=== PATIENT | female | born 1990 | race Caucasian/White ===

== ENCOUNTER → 2016-12-09 | Outpatient (CLI) | payer OTHER ==
[~2016-12-09] MED LIST: ATROPINE SULF 1MG/10ML SYRINGE (J0461) As Ordered ONE; BUPIVACAINE HCL 0.25% 10 ML VIAL As Ordered ONE; BUPIVACAINE HCL 0.25% 30 ML VIAL As Ordered ONE; BUTA1CAP PO; CYMB60CA3 PO; GABA300C3 PO; MECL-68 PO; MELO7.5T6 PO; REQU0.5T PO; SOMA350T PO; TRI-TAB16 PO; TRIAMCINOLONE ACETONIDE SUSP 40 MG/ML VIAL (J3301) As Ordered ONE; VITA500T3 PO; ZOFR8TAB PO
--- NOTE | 2016-12-12 01:26 | ECWPNPC ---
PATIENT NAME: DONNA MALDONADO : 1990 GENDER: FEMALE VISIT DATE: 12/09/2016 DISCHARGE DATE: 12/09/16 1300 VISIT LOCKED DATE TIME: PHYSICIAN: JAYMIE WHITE RESOURCE: JAYMIE WHITE REASON FOR APPOINTMENT 1. CHRONIC BILATERAL LOW BACK PAIN HISTORY OF PRESENT ILLNESS HISTORY OF PRESENT ILLNESS: PAIN THE PATIENT DESCRIBES THE PAIN... FALL RISK SCREENING: SCREENING :NO FALLS IN THE PAST YEAR CURRENT MEDICATIONS TAKING [id number] 50-300-40 MG CAPSULE 2 ORALLY DAILY NEEDED, NOTES: 12-07-16 TAKING ZOFRAN 8 MG TABLET 1 TABLET ORALLY TID NEEDED, NOTES: NONE TAKING REQUIP 0.5 MG TABLET ORALLY ONE AT SUPPER/ONE AT BEDTIME, NOTES: 12-08-162099 TAKING MICROGESTIN 1/20 1-20 MG-MCG TABLET 1 TABLET ORALLY DAILY FOR THREE WEEKS, 1 WEEK OFF TAKING METOPROLOL SUCCINATE 50 MG TABLET EXTENDED RELEASE ORALLY 25 MG TWICE DAILY, NOTES: 12-09-16 0800 TAKING GABAPENTIN 400 MG CAPSULE 1 CAPSULE ORALLY THREE TIMES A DAY, NOTES: 12-09-16 08 TAKING TRAMADOL HCL 50 MG TABLET 1 ORALLY Q4-6H MDD4, NOTES: 12-09-16 0800 TAKING MELOXICAM 15 MG TABLET 1 TABLET ORALLY ONCE A DAY, NOTES: 12-09-16 08 TAKING SOMA 350 MG TABLET 1 TABLET NEEDED ORALLY BID PRN, NOTES: 12-08-16 2030 TAKING ACETAMINOPHEN 500 MG CAPSULE 2 CAPSULES NEEDED ORALLY EVERY 6 HRS, NOTES: NONE TAKING HYDROXYCHLOROQUINE SULFATE 200 MG TABLET 1 TABLET WITH FOOD OR MILK ORALLY ONCE A DAY, NOTES: HASNT STARTED IT YET TAKING PREDNISOLONE 5 MG TABLET ORALLY DAILY, NOTES: HASNT STARTED IT YET. NOT-TAKING TRI-LINYAH 0.18/0.215/0.25 MG-35 MCG TABLET 1 TABLET ORALLY ONCE A DAY NOT-TAKING CYANOCOBALAMIN 500 MCG TABLET 1 TABLET ORALLY ONCE A DAY MEDICATION LIST REVIEWED AND RECONCILED WITH THE PATIENT PAST MEDICAL HISTORY MIGRAINES FIBROMYALGIA RIGHT KNEE CARTILAGE DEGENERATION SCOLIOSIS HERNIATED DISCS PSVT ALLERGIES FLEXERIL: MOOD CHANGES: SIDE EFFECTS LYRICA: INCREASES MIGRAINES: SIDE EFFECTS SOCIAL HISTORY GENERAL: TOBACCO USE ARE YOU A:NONSMOKER LEARNING BARRIERS / SPECIAL NEEDS ORIENTED TO PLAN OF CARE: PATIENT, PAIN MANAGEMENT PATIENT, ORIENTED TO PLAN OF CARE: PATIENT, PAIN MANAGEMENT PATIENT. NEW PATIENT PAIN DIARY TODAY'S VISITNOTES FROM 0-10, WHAT LEVEL IS YOUR PAIN TODAY?0 PAIN CLINIC PFS, CLERGY, PUBLIC HEALTH REFERRALS PFS REFERRAL NEEDED?NO CLERGY REFERRAL NEEDED?NO PUBLIC HEALTH REFERRAL NEEDED?NO WAS THE PROVIDER NOTIFIED OF ANY PERTINENT INFO?NO PFS REFERRAL NEEDED?NO CLERGY REFERRAL NEEDED?NO PUBLIC HEALTH REFERRAL NEEDED?NO WAS THE PROVIDER NOTIFIED OF ANY PERTINENT INFO?NO REVIEW OF SYSTEMS CONSTITUTIONAL: ANY CHANGE IN YOUR MEDICAL CONDITION? YES, NO DIAGNOSIS- CONNECTIVE TISSUE DISEASE, UNDIFFERENTIATED DOUGLAS POSITIVE . CHILLS NO . FEVER NO . INFECTION: DO YOU HAVE NEW INFECTIONS? NO . DO YOU HAVE HISTORY OF MRSA? NO . MUSCULOSKELETAL: ANY NEW PATTERNS OF PAIN OR NUMBNESS? NO . GASTROENTEROLOGY: ANY NEW CHANGE IN BOWEL CONTROL? NO . GENITOURINARY: ANY NEW CHANGE IN BLADDER CONTROL? NO . IS THERE A CHANCE YOU COULD BE ? NO . HEMATOLOGY/LYMPH: DO YOU TAKE ANY BLOOD THINNERS? (FOR EXAMPLE- COUMADIN, PLAVIX, AGGRENOX, PLATEL, PRADAXA, OR XARELTO) NO . WHEN WAS YOUR LAST DOSE? DATE: TIME: . NEUROLOGY: HAVE YOU FALLEN IN THE PAST 6 MONTHS? YES . ANY NEW EXTREMITY NUMBNESS OR WEAKNESS? NO . CARDIOLOGY: DO YOU HAVE A PACEMAKER OR DEFIBRILLATOR? NO . RESPIRATORY: HAVE YOU BEEN SICK IN THE PAST WEEK? NO . FEVER NO . FLU LIKE SYMPTOMS? NO . COUGH NO . INTEGUMENTARY: DO YOU HAVE ANY RASHES OR OPEN SORES? NO . ALLERGIC/IMMUNO: ARE YOU ALLERGIC TO SHELLFISH OR IV DYE? NO . ANY NEW ALLERGIES? NO . PSYCHIATRIC: DO YOU HAVE THOUGHTS OF HURTING YOURSELF OR SOMEONE ELSE? NO . ARE YOU ABUSED, NEGLECTED, OR IN AN UNSAFE ENVIRONMENT? NO . ENDOCRINOLOGY: ARE YOU DIABETIC? NO . OTHER: DO YOU NEED ANY PRESCRIPTIONS? NO . IF YES, PLEASE LIST: ____ . ANY NEW PROBLEMS WITH YOUR MEDICATIONS? NO . WHEN DID YOU LAST EAT? 12-08-16 2030 . WHEN DID YOU LAST DRINK? 12-09-16 0800 . WHAT DID YOU LAST DRINK? GINGERALE . NAME OF PERSON DRIVING YOU HOME? KAMLA . DO YOU HAVE ANY OTHER QUESTIONS OR CONCERNS NO . REVIEWED BY: PROVIDER: . VITAL SIGNS WT 92 LBS, HT 61 IN, BMI 17.38 INDEX, BP 105/69 MM HG, HR 67 /MIN, RR 16 /MIN, TEMP 96.0 F, OXYGEN SAT % 97%, NA INITIALS SC 10:57, REVIEWED BY: CM. ASSESSMENTS MYALGIA - M79.1 (PRIMARY) PROCEDURES PN TRIGGER POINT INJECTION NO STEROIDS PRE PROCEDURE DIAGNOSIS 1. MYALGIA 2. PAIN AT BILATERAL SHOULDER AREA AND LEFT LOWER BACK AREA POST PROCEDURE DIAGNOSIS 1. MYALGIA 2. PAIN AT BILATERAL SHOULDER AREA AND LEFT LOWER BACK AREA PROCEDURE TRIGGER POINT INJECTION AT BILATERAL SHOULDER AREA AND LEFT LOWER BACK AREA SURGEON DR. 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 I EVALUATED THE PATIENT AND REVIEWED THE CHART. THERE IS EVIDENCE OF BANDS OF TISSUE WITH RESTRICTION OF MOVEMENT AND PRESENCE OF TRIGGER POINT AT THE AFFECTED AREA. I WENT OVER THE RISKS, ALTERNATIVES, AND BENEFITS ASSOCIATED WITH THIS PROCEDURE. THE PATIENT WOULD LIKE TO PROCEED AND GAVE CONSENT TO PERFORM THE PROCEDURE. THE PATIENT DENIES UNEXPLAINABLE WEIGHT LOSS, FEVER, CHILLS, OR NEW CHANGES IN URINARY OR BOWEL CONTROL DESCRIPTION OF PROCEDURE THE PATIENT WAS BROUGHT TO THE PROCEDURE ROOM AND PLACED IN THE SITTING PRONE POSITION. THE AREA WAS CLEANED WITH ALCOHOL. THE PROCEDURE WAS DONE USING ASEPTIC STERILE TECHNIQUES. I CHECKED LATERALITY AND THE LEVEL WHERE THE PROCEDURE WAS GOING TO BE PERFORMED WITH THE PATIENT AND THE SUPPORTING STAFF AT THE MOMENT OF THE TIME OUT IN THE PROCEDURE ROOM. USING A 25-GAUGE NEEDLE, TRIGGER POINTS WERE INJECTED AT THE LEFT AND RIGHT SHOULDER AREA AND LEFT LOWER BACK AREA WITH A TOTAL OF 40 ML OF BUPIVACAINE 0.25%. AGREED WITH THE PATIENT THE PROCEDURE WAS DONE WITHOUT STEROIDS. THERE WAS NO EVIDENCE OF BLOOD, PARESTHESIA OR CEREBROSPINAL FLUID DURING THE PROCEDURE. THE PATIENT WAS SENT TO THE RECOVERY ROOM. THE PATIENT WAS MOVING THE EXTREMITIES AND DOING WELL. THERE WAS NO COMPLICATION DURING THE PROCEDURE POST PROCEDURE NOTE THE PATIENT WILL BE SEEN IN A FOLLOW UP IN THE NEXT FEW WEEKS. INSTRUCTIONS WERE GIVEN, QUESTIONS WERE ANSWERED, AND THE PATIENT EXPRESSED UNDERSTANDING AND AGREED WITH THE PLAN. I, JOO MAURICIO, DOCUMENTED THE ABOVE INFORMATION ACTING A SCRIBE FOR DR. WHITE. I HAVE REVIEWED THE ABOVE DOCUMENT, WRITTEN BY JOO ALBERTS AND I VERIFY THAT IT IS ACCURATE PROCEDURE CODES 65202 INJECT TRIGGER POINTS, =/> 3 FOLLOW UP 3 WEEKS ELECTRONICALLY SIGNED BY JAYMIE WHITE MD ON 12/11/2016 AT 06:18 PM EST DISCLAIMER : THIS IS A VISIT SUMMARY EXTRACTED FROM THE [employer] CHART. IT IS NOT A COPY OF THE [employer] PROGRESS NOTE. BRANDON
== END ==
LOC: M PAIN 10:40
PROVIDERS: ATTEND Anesthesiology
DX: G89.29 Other chronic pain (principal); M79.1 Myalgia; M54.5 Low back pain; M25.511 Pain in right shoulder; M25.512 Pain in left shoulder; Z79.891 Long term (current) use of opiate analgesic; Z79.899 Other long term (current) drug therapy; M41.9 Scoliosis, unspecified; M51.9 Unspecified thoracic, thoracolumbar and lumbosacral intervertebral disc disorder; I47.1 Supraventricular tachycardia
CPT/HCPCS: 20553; J3301

== ENCOUNTER → 2016-12-17 | Outpatient (REF) ==
[~2016-12-17] MED LIST changes: -ATROPINE SULF 1MG/10ML SYRINGE (J0461) As Ordered ONE; -BUPIVACAINE HCL 0.25% 10 ML VIAL As Ordered ONE; -BUPIVACAINE HCL 0.25% 30 ML VIAL As Ordered ONE; -TRIAMCINOLONE ACETONIDE SUSP 40 MG/ML VIAL (J3301) As Ordered ONE
== END ==
LOC: M LAB REF 12:58
PROVIDERS: ATTEND Family Medicine
DX: Z01.89 Encounter for other specified special examinations (principal)

== ENCOUNTER → 2017-01-06 | Outpatient (CLI) | payer OTHER ==
--- NOTE | 2017-01-07 00:05 | ECWPNPC ---
PATIENT NAME: DONNA MALDONADO : 1990 GENDER: FEMALE VISIT DATE: 01/06/2017 DISCHARGE DATE: 01/06/17 1137 VISIT LOCKED DATE TIME: PHYSICIAN: MERON RAMOS RESOURCE: MERON RAMOS REASON FOR APPOINTMENT 1. POST TPI HISTORY OF PRESENT ILLNESS HISTORY OF PRESENT ILLNESS: HERE FOR POST PROCEDURE F/U.HAD TPI 12-09-16.REPORTS IMPROVEMENT IN PAIN.THESE WERE OVER LEFT UPPER AND LOWER BACK.RECENT DIAGNOSIS OF CONNECTIVE TISSUE DISEASE/PRE LUPUS BY RHEUMATOLOGY -DR. [id number]-[id number].STARTED ON PREDNISONE 20MG DAILY AND PLAQUENIL 200MG DAILY.HAS NOT NEEDED SOMA SINCE BEING ON THESE MEDICATIONS.HAS DEVELOPED CIRCULAR PINK MACULAR RASH ON BACK.STARTED NOTICING THIS MAY 2016.THESES ARE TENDER TO TOUCH.DR. BOYER REFFERED TO DERMATOLOGY.RATING PAIN VAS 7/10. FALL RISK SCREENING: SCREENING :NO FALLS IN THE PAST YEAR CURRENT MEDICATIONS TAKING [id number] 50-300-40 MG CAPSULE 2 ORALLY DAILY NEEDED TAKING ZOFRAN 8 MG TABLET 1 TABLET ORALLY TID NEEDED TAKING REQUIP 0.5 MG TABLET ORALLY ONE AT SUPPER/ONE AT BEDTIME TAKING MICROGESTIN 12/18 1-20 MG-MCG TABLET 1 TABLET ORALLY DAILY FOR THREE WEEKS, 1 WEEK OFF TAKING METOPROLOL SUCCINATE 50 MG TABLET EXTENDED RELEASE ORALLY 25 MG TWICE DAILY TAKING GABAPENTIN 400 MG CAPSULE 1 CAPSULE ORALLY THREE TIMES A DAY TAKING TRAMADOL HCL 50 MG TABLET 1 ORALLY Q4-6H MDD4 TAKING MELOXICAM 15 MG TABLET 1 TABLET ORALLY ONCE A DAY, NOTES: 12-09-16 0800 TAKING SOMA 350 MG TABLET 1 TABLET NEEDED ORALLY BID PRN, NOTES: 12-08-16 2030 TAKING ACETAMINOPHEN 500 MG CAPSULE 2 CAPSULES NEEDED ORALLY EVERY 6 HRS, NOTES: NONE TAKING HYDROXYCHLOROQUINE SULFATE 200 MG TABLET 1 TABLET WITH FOOD OR MILK ORALLY ONCE A DAY TAKING PREDNISOLONE 5 MG TABLET ORALLY DAILY, NOTES: -17 NOT-TAKING TRI-LINYAH 0.18/0.215/0.25 MG-35 MCG TABLET 1 TABLET ORALLY ONCE A DAY NOT-TAKING CYANOCOBALAMIN 500 MCG TABLET 1 TABLET ORALLY ONCE A DAY MEDICATION LIST REVIEWED AND RECONCILED WITH THE PATIENT PAST MEDICAL HISTORY MIGRAINES FIBROMYALGIA RIGHT KNEE CARTILAGE DEGENERATION SCOLIOSIS HERNIATED DISCS PSVT CONNECTIVE TISSUE DISEASE ALLERGIES FLEXERIL: MOOD CHANGES: SIDE EFFECTS LYRICA: INCREASES MIGRAINES: SIDE EFFECTS SOCIAL HISTORY GENERAL: TOBACCO USE ARE YOU A:NONSMOKER LEARNING BARRIERS / SPECIAL NEEDS ORIENTED TO PLAN OF CARE: PATIENT, PAIN MANAGEMENT PATIENT, ORIENTED TO PLAN OF CARE: PATIENT, PAIN MANAGEMENT PATIENT. NEW PATIENT PAIN DIARY TODAY'S VISITNOTES FROM 0-10, WHAT LEVEL IS YOUR PAIN TODAY?0 PAIN CLINIC PFS, CLERGY, PUBLIC HEALTH REFERRALS PFS REFERRAL NEEDED?NO CLERGY REFERRAL NEEDED?NO PUBLIC HEALTH REFERRAL NEEDED?NO WAS THE PROVIDER NOTIFIED OF ANY PERTINENT INFO?NO PFS REFERRAL NEEDED?NO CLERGY REFERRAL NEEDED?NO PUBLIC HEALTH REFERRAL NEEDED?NO WAS THE PROVIDER NOTIFIED OF ANY PERTINENT INFO?NO REVIEW OF SYSTEMS CONSTITUTIONAL: ANY CHANGE IN YOUR MEDICAL CONDITION? NO . CHILLS NO . FEVER NO . INFECTION: DO YOU HAVE NEW INFECTIONS? NO . DO YOU HAVE HISTORY OF MRSA? NO . MUSCULOSKELETAL: ANY NEW PATTERNS OF PAIN OR NUMBNESS? NO . GASTROENTEROLOGY: ANY NEW CHANGE IN BOWEL CONTROL? NO . GENITOURINARY: ANY NEW CHANGE IN BLADDER CONTROL? NO . IS THERE A CHANCE YOU COULD BE ? NO . HEMATOLOGY/LYMPH: DO YOU TAKE ANY BLOOD THINNERS? (FOR EXAMPLE- COUMADIN, PLAVIX, AGGRENOX, PLATEL, PRADAXA, OR XARELTO) NO . WHEN WAS YOUR LAST DOSE? DATE: TIME: . NEUROLOGY: HAVE YOU FALLEN IN THE PAST 6 MONTHS? NO . ANY NEW EXTREMITY NUMBNESS OR WEAKNESS? NO . CARDIOLOGY: DO YOU HAVE A PACEMAKER OR DEFIBRILLATOR? NO . RESPIRATORY: HAVE YOU BEEN SICK IN THE PAST WEEK? NO . FEVER NO . FLU LIKE SYMPTOMS? NO . COUGH NO . INTEGUMENTARY: DO YOU HAVE ANY RASHES OR OPEN SORES? NO . ALLERGIC/IMMUNO: ARE YOU ALLERGIC TO SHELLFISH OR IV DYE? NO . ANY NEW ALLERGIES? NO . PSYCHIATRIC: DO YOU HAVE THOUGHTS OF HURTING YOURSELF OR SOMEONE ELSE? NO . ARE YOU ABUSED, NEGLECTED, OR IN AN UNSAFE ENVIRONMENT? NO . ENDOCRINOLOGY: ARE YOU DIABETIC? NO . OTHER: DO YOU NEED ANY PRESCRIPTIONS? NO . IF YES, PLEASE LIST: ____ . ANY NEW PROBLEMS WITH YOUR MEDICATIONS? NO . WHEN DID YOU LAST EAT? ____ . WHEN DID YOU LAST DRINK? ____ . WHAT DID YOU LAST DRINK? ____ . NAME OF PERSON DRIVING YOU HOME? ____ . DO YOU HAVE ANY OTHER QUESTIONS OR CONCERNS NO . REVIEWED BY: PROVIDER: MERON MOREIRA . VITAL SIGNS WT 92 LBS, HT 61 IN, BMI 17.38 INDEX, BP 114/65 MM HG, HR 68 /MIN, RR 16 /MIN, TEMP 96.0 F, OXYGEN SAT % 100, NA INITIALS TL 1054, REVIEWED BY: KG. EXAMINATION GENERAL EXAMINATION: LUNGS:LUNG SOUNDS ARE CLEAR. HEART:HEART RATE REGULAR. MUSCULOSKELETAL:*TRIGGER POINTS ELICITED WITH PALPATION OVER CERVICAL SPINOUS PROCESSES AND ACROSS THE TRAPEZIUS MUSCLES BILATERALLY. RESTRICTION OF ROM IS NOTED. . 1INCH PINK PAPULAR LESIONS ON BACK X4-5 SPOTS. 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 CHARGE FOLLOW UP 2 MONTHS ELECTRONICALLY SIGNED BY HARISH COOK ON 01/06/2017 AT 01:52 PM EST DISCLAIMER : THIS IS A VISIT SUMMARY EXTRACTED FROM THE [employer] CHART. IT IS NOT A COPY OF THE [employer] PROGRESS NOTE. MTDD
== END ==
LOC: M PAIN 10:40
PROVIDERS: ATTEND Nurse Practitioner Family
DX: Z09 Encounter for follow-up examination after completed treatment for conditions other than malignant neoplasm (principal); G89.29 Other chronic pain; M35.9 Systemic involvement of connective tissue, unspecified; M79.7 Fibromyalgia; G43.909 Migraine, unspecified, not intractable, without status migrainosus; M17.11 Unilateral primary osteoarthritis, right knee; M41.9 Scoliosis, unspecified; I47.1 Supraventricular tachycardia; Z79.1 Long term (current) use of non-steroidal anti-inflammatories (NSAID); Z79.52 Long term (current) use of systemic steroids; Z79.891 Long term (current) use of opiate analgesic; Z79.899 Other long term (current) drug therapy

== ENCOUNTER → 2017-03-08 | Outpatient (CLI) | payer OTHER ==
[~2017-03-08] MED LIST changes: +GABA-282 PO; -GABA300C3 PO
--- NOTE | 2017-03-18 00:45 | ECWPNPC ---
PATIENT NAME: DONNA MALDONADO : 1990 GENDER: FEMALE VISIT DATE: 03/08/2017 DISCHARGE DATE: 03/08/17 1155 VISIT LOCKED DATE TIME: PHYSICIAN: MERON RAMOS RESOURCE: MERON RAMOS REASON FOR APPOINTMENT 1. CHRONIC BILATERAL LOW BACK PAIN WITH BILATERAL SCIATICA HISTORY OF PRESENT ILLNESS HISTORY OF PRESENT ILLNESS: HERE FOR F/U AND MANAGEMENT OF LBP AND NECK PAIN.PAIN HAS INCREASED LATELY.RATING PAIN VAS 8/10.USES TRAMADOL 50MG PRN WITH SOME IMPROVEMENT.FOLLOWS WITH DRAKE LIM FOR HEADACHES.SHE HAS STARTED HER ON ROBAXIN.CURRENTLY WITH CIRCULAR LESIONS ON BACK THAT STILL HASNT BEEN DIAGNOSED.WILL BE SEEING DERMATOLOGY [place]DR. BOYER HAS SENT HER THERE. PAIN THE PATIENT DESCRIBES THE PAIN... FALL RISK SCREENING: SCREENING :NO FALLS IN THE PAST YEAR CURRENT MEDICATIONS TAKING [id number] 50-300-40 MG CAPSULE 2 ORALLY DAILY NEEDED TAKING ZOFRAN 8 MG TABLET 1 TABLET ORALLY TID NEEDED TAKING REQUIP 0.5 MG TABLET ORALLY ONE AT SUPPER/ONE AT BEDTIME TAKING MICROGESTIN 1/20 1-20 MG-MCG TABLET 1 TABLET ORALLY DAILY FOR THREE WEEKS, 1 WEEK OFF TAKING METOPROLOL SUCCINATE 50 MG TABLET EXTENDED RELEASE ORALLY 25 MG TWICE DAILY TAKING ACETAMINOPHEN 500 MG CAPSULE 2 CAPSULES NEEDED ORALLY EVERY 6 HRS, NOTES: NONE TAKING HYDROXYCHLOROQUINE SULFATE 200 MG TABLET 1 TABLET WITH FOOD OR MILK ORALLY ONCE A DAY TAKING GABAPENTIN 400 MG CAPSULE 1 CAPSULE ORALLY THREE TIMES A DAY TAKING TRAMADOL HCL 50 MG TABLET 1 ORALLY Q4-6H MDD4 TAKING MELOXICAM 15 MG TABLET 1 TABLET ORALLY ONCE A DAY TAKING ROBAXIN 500 MG TABLET 1-2 TABS ORALLY DAILY TAKING IBUPROFEN 200 MG TABLET 1 TABLET NEEDED ORALLY EVERY 6 HRS NOT-TAKING PREDNISOLONE 5 MG TABLET ORALLY DAILY NOT-TAKING SOMA 350 MG TABLET 1 TABLET NEEDED ORALLY BID PRN NOT-TAKING GABAPENTIN 400 MG CAPSULE 1 CAPSULE ORALLY THREE TIMES A DAY NOT-TAKING MELOXICAM 15 MG TABLET 1 TABLET ORALLY ONCE A DAY NOT-TAKING METOPROLOL SUCCINATE ER 50 MG TABLET EXTENDED RELEASE 24 HOUR 1/2 TAB ORALLY TWICE DAILY NOT-TAKING TRAMADOL HCL 50 MG TABLET 1 TAB ORALLY EVERY 6 HOURS NEEDED/MMD#4 NOT-TAKING HYDROXYCHLOROQUINE SULFATE 200 MG TABLET 1 TABLET WITH FOOD OR MILK ORALLY ONCE A DAY NOT-TAKING MICROGESTIN FE 12/18 1-20 MG-MCG TABLET ORALLY NOT-TAKING TRI-LINYAH 0.18/0.215/0.25 MG-35 MCG TABLET 1 TABLET ORALLY ONCE A DAY NOT-TAKING CYANOCOBALAMIN 500 MCG TABLET 1 TABLET ORALLY ONCE A DAY MEDICATION LIST REVIEWED AND RECONCILED WITH THE PATIENT PAST MEDICAL HISTORY MIGRAINES FIBROMYALGIA RIGHT KNEE CARTILAGE DEGENERATION SCOLIOSIS HERNIATED DISCS PSVT CONNECTIVE TISSUE DISEASE ALLERGIES FLEXERIL: MOOD CHANGES: SIDE EFFECTS LYRICA: INCREASES MIGRAINES: SIDE EFFECTS SOCIAL HISTORY GENERAL: PAIN CLINIC PFS, CLERGY, PUBLIC HEALTH REFERRALS CLERGY REFERRAL NEEDED?NO WAS THE PROVIDER NOTIFIED OF ANY PERTINENT INFO?NO PFS REFERRAL NEEDED?NO PUBLIC HEALTH REFERRAL NEEDED?NO PATIENT: ____. REVIEW OF SYSTEMS CONSTITUTIONAL: ANY CHANGE IN YOUR MEDICAL CONDITION? NO . CHILLS NO . FEVER NO . INFECTION: DO YOU HAVE NEW INFECTIONS? NO . DO YOU HAVE HISTORY OF MRSA? NO . MUSCULOSKELETAL: ANY NEW PATTERNS OF PAIN OR NUMBNESS? NO . GASTROENTEROLOGY: ANY NEW CHANGE IN BOWEL CONTROL? NO . GENITOURINARY: ANY NEW CHANGE IN BLADDER CONTROL? NO . IS THERE A CHANCE YOU COULD BE ? NO . HEMATOLOGY/LYMPH: DO YOU TAKE ANY BLOOD THINNERS? (FOR EXAMPLE- COUMADIN, PLAVIX, AGGRENOX, PLATEL, PRADAXA, OR XARELTO) NO . WHEN WAS YOUR LAST DOSE? DATE: TIME: . NEUROLOGY: HAVE YOU FALLEN IN THE PAST 6 MONTHS? NO . ANY NEW EXTREMITY NUMBNESS OR WEAKNESS? NO . CARDIOLOGY: DO YOU HAVE A PACEMAKER OR DEFIBRILLATOR? NO . RESPIRATORY: HAVE YOU BEEN SICK IN THE PAST WEEK? NO . FEVER NO . FLU LIKE SYMPTOMS? NO . COUGH NO . INTEGUMENTARY: DO YOU HAVE ANY RASHES OR OPEN SORES? NO . ALLERGIC/IMMUNO: ARE YOU ALLERGIC TO SHELLFISH OR IV DYE? NO . ANY NEW ALLERGIES? NO . PSYCHIATRIC: DO YOU HAVE THOUGHTS OF HURTING YOURSELF OR SOMEONE ELSE? NO . ARE YOU ABUSED, NEGLECTED, OR IN AN UNSAFE ENVIRONMENT? NO . ENDOCRINOLOGY: ARE YOU DIABETIC? NO . OTHER: DO YOU NEED ANY PRESCRIPTIONS? YES . IF YES, PLEASE LIST: TRAMADOL . ANY NEW PROBLEMS WITH YOUR MEDICATIONS? NO . WHEN DID YOU LAST EAT? ____ . WHEN DID YOU LAST DRINK? ____ . WHAT DID YOU LAST DRINK? ____ . NAME OF PERSON DRIVING YOU HOME? ____ . DO YOU HAVE ANY OTHER QUESTIONS OR CONCERNS NO . REVIEWED BY: PROVIDER: MERON MOREIRA . VITAL SIGNS WT 98 LBS, HT 61 IN, BMI 18.51 INDEX, BP 116/66 MM HG, HR 77 /MIN, RR 18 /MIN, TEMP 98.2 F, OXYGEN SAT % 100%, NA INITIALS SJ 1100, REVIEWED BY: CS. EXAMINATION GENERAL EXAMINATION: LUNGS:LUNG SOUNDS ARE CLEAR. HEART:HEART RATE REGULAR. MUSCULOSKELETAL:*TRIGGER POINTS ELICITED WITH PALPATION OVER CERVICAL SPINOUS PROCESSES AND ACROSS THE TRAPEZIUS MUSCLES BILATERALLY. RESTRICTION OF ROM IS NOTED. . 1INCH PINK PAPULAR LESIONS ON BACK X4-5 SPOTS. 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 IT IS NOT A COPY OF THE [employer] PROGRESS NOTE. MTDD
== END ==
LOC: M PAIN 10:40
PROVIDERS: ATTEND Nurse Practitioner Family
DX: G89.29 Other chronic pain (principal); M35.9 Systemic involvement of connective tissue, unspecified; M79.7 Fibromyalgia; G43.909 Migraine, unspecified, not intractable, without status migrainosus; M17.11 Unilateral primary osteoarthritis, right knee; M41.9 Scoliosis, unspecified; I47.9 Paroxysmal tachycardia, unspecified; Z88.8 Allergy status to other drugs, medicaments and biological substances; Z79.1 Long term (current) use of non-steroidal anti-inflammatories (NSAID); Z79.891 Long term (current) use of opiate analgesic; Z79.899 Other long term (current) drug therapy

== ENCOUNTER → 2017-06-07 | Outpatient (CLI) | payer OTHER ==
[~2017-06-07] MED LIST changes: -MELO7.5T6 PO; +MELO7.5T7 PO; -REQU0.5T PO; +REQU1TAB15 PO
--- NOTE | 2017-06-08 02:44 | ECWPNPC ---
PATIENT NAME: DONNA MALDONADO : 1990 GENDER: FEMALE VISIT DATE: 06/07/2017 DISCHARGE DATE: 06/07/17 1134 VISIT LOCKED DATE TIME: PHYSICIAN: MERON RAMOS RESOURCE: MERON RAMOS REASON FOR APPOINTMENT 1. CHRONIC BILATERAL LOW BACK PAIN WITH BILATERAL SCIATICA HISTORY OF PRESENT ILLNESS HISTORY OF PRESENT ILLNESS: HERE FOR F/U AND MANAGEMENT OF LBP AND NECK PAIN.PAIN HAS BETTER LATELY.RATING PAIN VAS 7/10.FOLLOWS WITH DR. BOYER RHEUMATOLOGY FOR DOUGLAS POSITIVE CONNECTIVE TISSUE DISEASE AND WAS PLACED ON PLAQUENIL SEVERAL MONTHS AGO.DOES NOT FEEL ANY DIFFERENCE IN PAIN WITH PLAQUENIL.USES TRAMADOL 50MG PRN WITH SOME IMPROVEMENT.FOLLOWS WITH DRAKE LIM FOR HEADACHES.SHE HAS STARTED HER ON ROBAXIN.HISTORY OF CIRCULAR LESIONS ON BACK THAT STILL HASNT BEEN DIAGNOSED.WILL BE SEEING DERMATOLOGY [place].DR. BOYER HAS SENT HER THERE. PAIN THE PATIENT DESCRIBES THE PAIN... THE PATIENT DESCRIBES THE PAIN... FALL RISK SCREENING: SCREENING :NO FALLS IN THE PAST YEAR CURRENT MEDICATIONS TAKING [id number] 50-300-40 MG CAPSULE 2 ORALLY DAILY NEEDED, NOTES: 06/05/17 TAKING ZOFRAN 8 MG TABLET 1 TABLET ORALLY TID NEEDED TAKING REQUIP 0.5 MG TABLET ORALLY ONE AT SUPPER/ONE AT BEDTIME TAKING MICROGESTIN 1/20 1-20 MG-MCG TABLET 1 TABLET ORALLY DAILY FOR THREE WEEKS, 1 WEEK OFF TAKING METOPROLOL SUCCINATE 50 MG TABLET EXTENDED RELEASE ORALLY 25 MG TWICE DAILY TAKING ACETAMINOPHEN 500 MG CAPSULE 2 CAPSULES NEEDED ORALLY EVERY 6 HRS, NOTES: NONE TAKING HYDROXYCHLOROQUINE SULFATE 200 MG TABLET 1 TABLET WITH FOOD OR MILK ORALLY ONCE A DAY TAKING GABAPENTIN 400 MG CAPSULE 1 CAPSULE ORALLY THREE TIMES A DAY, NOTES: 06/05/17 TAKING MELOXICAM 15 MG TABLET 1 TABLET ORALLY ONCE A DAY TAKING ROBAXIN 500 MG TABLET 1-2 TABS ORALLY DAILY TAKING IBUPROFEN 200 MG TABLET 1 TABLET NEEDED ORALLY EVERY 6 HRS TAKING TRAMADOL HCL 50 MG TABLET 1 ORALLY Q4-6H MDD4, NOTES: 06/03/17 NOT-TAKING PREDNISOLONE 5 MG TABLET ORALLY DAILY NOT-TAKING SOMA 350 MG TABLET 1 TABLET NEEDED ORALLY BID PRN NOT-TAKING GABAPENTIN 400 MG CAPSULE 1 CAPSULE ORALLY THREE TIMES A DAY NOT-TAKING MELOXICAM 15 MG TABLET 1 TABLET ORALLY ONCE A DAY NOT-TAKING METOPROLOL SUCCINATE ER 50 MG TABLET EXTENDED RELEASE 24 HOUR 1/2 TAB ORALLY TWICE DAILY NOT-TAKING TRAMADOL HCL 50 MG TABLET 1 TAB ORALLY EVERY 6 HOURS NEEDED/MMD#4 NOT-TAKING HYDROXYCHLOROQUINE SULFATE 200 MG TABLET 1 TABLET WITH FOOD OR MILK ORALLY ONCE A DAY NOT-TAKING MICROGESTIN FE 12/18 1-20 MG-MCG TABLET ORALLY NOT-TAKING TRI-LINYAH 0.18/0.215/0.25 MG-35 MCG TABLET 1 TABLET ORALLY ONCE A DAY NOT-TAKING CYANOCOBALAMIN 500 MCG TABLET 1 TABLET ORALLY ONCE A DAY MEDICATION LIST REVIEWED AND RECONCILED WITH THE PATIENT PAST MEDICAL HISTORY MIGRAINES FIBROMYALGIA RIGHT KNEE CARTILAGE DEGENERATION SCOLIOSIS HERNIATED DISCS PSVT CONNECTIVE TISSUE DISEASE ALLERGIES FLEXERIL: MOOD CHANGES: SIDE EFFECTS LYRICA: INCREASES MIGRAINES: SIDE EFFECTS SOCIAL HISTORY GENERAL: PAIN CLINIC PFS, CLERGY, PUBLIC HEALTH REFERRALS PFS REFERRAL NEEDED?NO CLERGY REFERRAL NEEDED?NO PUBLIC HEALTH REFERRAL NEEDED?NO WAS THE PROVIDER NOTIFIED OF ANY PERTINENT INFO?NO HAS THE PATIENT BEEN EDUCATED REGARDING HIS/HER PLAN OF CARE?YES HAS THE PATIENT BEEN EDUCATED REGARDING PAIN, THE RISK FOR PAIN, THE IMPORTANCE OF EFFECTIVE PAIN MANAGEMENT, AND THE PAIN ASSESSMENT PROCESS?YES PATIENT: ____. REVIEW OF SYSTEMS REVIEWED BY: PROVIDER: MERON MOREIRA . CONSTITUTIONAL: ANY CHANGE IN YOUR MEDICAL CONDITION? NO . CHILLS NO . FEVER NO . INFECTION: DO YOU HAVE NEW INFECTIONS? NO . DO YOU HAVE HISTORY OF MRSA? NO . MUSCULOSKELETAL: ANY NEW PATTERNS OF PAIN OR NUMBNESS? NO . GASTROENTEROLOGY: ANY NEW CHANGE IN BOWEL CONTROL? NO . GENITOURINARY: ANY NEW CHANGE IN BLADDER CONTROL? NO . IS THERE A CHANCE YOU COULD BE ? NO . HEMATOLOGY/LYMPH: DO YOU TAKE ANY BLOOD THINNERS? (FOR EXAMPLE- COUMADIN, PLAVIX, AGGRENOX, PLATEL, PRADAXA, OR XARELTO) NO . WHEN WAS YOUR LAST DOSE? DATE: TIME: . NEUROLOGY: HAVE YOU FALLEN IN THE PAST 6 MONTHS? NO . ANY NEW EXTREMITY NUMBNESS OR WEAKNESS? NO . CARDIOLOGY: DO YOU HAVE A PACEMAKER OR DEFIBRILLATOR? NO . RESPIRATORY: HAVE YOU BEEN SICK IN THE PAST WEEK? NO . FEVER NO . FLU LIKE SYMPTOMS? NO . COUGH NO . INTEGUMENTARY: DO YOU HAVE ANY RASHES OR OPEN SORES? NO . ALLERGIC/IMMUNO: ARE YOU ALLERGIC TO SHELLFISH OR IV DYE? NO . ANY NEW ALLERGIES? NO . PSYCHIATRIC: DO YOU HAVE THOUGHTS OF HURTING YOURSELF OR SOMEONE ELSE? NO . ARE YOU ABUSED, NEGLECTED, OR IN AN UNSAFE ENVIRONMENT? NO . ENDOCRINOLOGY: ARE YOU DIABETIC? NO . OTHER: DO YOU NEED ANY PRESCRIPTIONS? NO . IF YES, PLEASE LIST: ____ . ANY NEW PROBLEMS WITH YOUR MEDICATIONS? NO . WHEN DID YOU LAST EAT? ____ . WHEN DID YOU LAST DRINK? ____ . WHAT DID YOU LAST DRINK? ____ . NAME OF PERSON DRIVING YOU HOME? ____ . DO YOU HAVE ANY OTHER QUESTIONS OR CONCERNS NO . VITAL SIGNS WT 99 LBS, HT 61 IN, BMI 18.70 INDEX, BP 97/63 MM HG, HR 68 /MIN, RR 16 /MIN, TEMP 98.1 F, OXYGEN SAT % 100%, NA INITIALS SC 11:04, REVIEWED BY: SENG. EXAMINATION GENERAL EXAMINATION: LUNGS:LUNG SOUNDS ARE CLEAR. HEART:HEART RATE REGULAR. MUSCULOSKELETAL:*TRIGGER POINTS ELICITED WITH PALPATION OVER CERVICAL SPINOUS PROCESSES AND ACROSS THE TRAPEZIUS MUSCLES BILATERALLY. RESTRICTION OF ROM IS NOTED. . 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 PROCEDURE CODES FA211 ESTABILISHED PATIENT [facility] CHARGE DISPOSITION & COMMUNICATION FOLLOW UP 6 WEEKS (REASON: F/U CYMBALTA) ELECTRONICALLY SIGNED BY HARISH COOK ON 06/07/2017 AT 11:51 AM EDT DISCLAIMER : THIS IS A VISIT SUMMARY EXTRACTED FROM THE [employer] CHART. IT IS NOT A COPY OF THE [employer] PROGRESS NOTE. MTDD
== END ==
LOC: M PAIN 11:00
PROVIDERS: ATTEND Nurse Practitioner Family
DX: G89.29 Other chronic pain (principal); M35.9 Systemic involvement of connective tissue, unspecified; M79.1 Myalgia; G43.909 Migraine, unspecified, not intractable, without status migrainosus; M17.11 Unilateral primary osteoarthritis, right knee; Z88.8 Allergy status to other drugs, medicaments and biological substances; Z79.891 Long term (current) use of opiate analgesic; Z79.899 Other long term (current) drug therapy

== ENCOUNTER → 2017-08-04 | Outpatient (CLI) | payer OTHER ==
--- NOTE | 2017-08-13 01:02 | ECWPNPC ---
PATIENT NAME: DONNA MALDONADO : 1990 GENDER: FEMALE VISIT DATE: 08/04/2017 DISCHARGE DATE: 08/04/17 1727 VISIT LOCKED DATE TIME: PHYSICIAN: MERON RAMOS RESOURCE: MERON RAMOS REASON FOR APPOINTMENT 1. F/U CYMBALTA HISTORY OF PRESENT ILLNESS HISTORY OF PRESENT ILLNESS: HERE FOR F/U AND MANAGEMENT OF LBP AND NECK PAIN.PAIN HAS BEEN AGGREVATED IN NECK AREA LATELY.HAS RESPONDED TO TPI LATELY.RATING PAIN VAS 6/10.FOLLOWS WITH DR. BOYER RHEUMATOLOGY FOR DOUGLAS POSITIVE CONNECTIVE TISSUE DISEASE AND WAS PLACED ON PLAQUENIL SEVERAL MONTHS AGO.USES TRAMADOL 50MG PRN WITH SOME IMPROVEMENT.FOLLOWS WITH DRAKE LIM FOR HEADACHES.SHE HAS STARTED HER ON ROBAXIN DAILY A FEW MONTHS AGO AND REPORTS NO IMPROVEMENT.STATES CIRCULAR LESIONS ON BACK HAVE RESOLVED.[place]. BOYER HAS SENT HER THERE.USING GABAPENTIN 400MG TID AND MOBIC 15MG DAILY PRESCRIBED BY DRAKE LIM AT NEUROLOGY.HAD TO STOP CYMBALTA DUE TO SEVERE FATIGUE. PAIN THE PATIENT DESCRIBES THE PAIN... THE PATIENT DESCRIBES THE PAIN... THE PATIENT DESCRIBES THE PAIN... FALL RISK SCREENING: SCREENING :NO FALLS IN THE PAST YEAR CURRENT MEDICATIONS TAKING [id number] 50-300-40 MG CAPSULE 2 ORALLY DAILY NEEDED, NOTES: 06/05/17 TAKING ZOFRAN 8 MG TABLET 1 TABLET ORALLY TID NEEDED TAKING REQUIP 0.5 MG TABLET ORALLY ONE AT SUPPER/ONE AT BEDTIME TAKING MICROGESTIN 1/20 1-20 MG-MCG TABLET 1 TABLET ORALLY DAILY FOR THREE WEEKS, 1 WEEK OFF TAKING METOPROLOL SUCCINATE 50 MG TABLET EXTENDED RELEASE ORALLY 25 MG TWICE DAILY TAKING ACETAMINOPHEN 500 MG CAPSULE 2 CAPSULES NEEDED ORALLY EVERY 6 HRS, NOTES: NONE TAKING HYDROXYCHLOROQUINE SULFATE 200 MG TABLET 1 TABLET WITH FOOD OR MILK ORALLY ONCE A DAY TAKING GABAPENTIN 400 MG CAPSULE 1 CAPSULE ORALLY THREE TIMES A DAY, NOTES: 06/05/17 TAKING MELOXICAM 15 MG TABLET 1 TABLET ORALLY ONCE A DAY TAKING ROBAXIN 500 MG TABLET 1-2 TABS ORALLY DAILY TAKING IBUPROFEN 200 MG TABLET 1 TABLET NEEDED ORALLY EVERY 6 HRS TAKING TRAMADOL HCL 50 MG TABLET 1 ORALLY Q4-6H MDD4, NOTES: 7/6/17 NOT-TAKING TRAMADOL HCL 50 MG TABLET 1 TAB ORALLY EVERY 6 HOURS NEEDED/MMD#4 NOT-TAKING CYMBALTA 20 MG CAPSULE DELAYED RELEASE PARTICLES 1 CAPSULE ORALLY DAILY NOT-TAKING PREDNISOLONE 5 MG TABLET ORALLY DAILY NOT-TAKING SOMA 350 MG TABLET 1 TABLET NEEDED ORALLY BID PRN NOT-TAKING GABAPENTIN 400 MG CAPSULE 1 CAPSULE ORALLY THREE TIMES A DAY NOT-TAKING MELOXICAM 15 MG TABLET 1 TABLET ORALLY ONCE A DAY NOT-TAKING METOPROLOL SUCCINATE ER 50 MG TABLET EXTENDED RELEASE 24 HOUR /2 TAB ORALLY TWICE DAILY NOT-TAKING HYDROXYCHLOROQUINE SULFATE 200 MG TABLET 1 TABLET WITH FOOD OR MILK ORALLY ONCE A DAY NOT-TAKING MICROGESTIN FE 12/18 1-20 MG-MCG TABLET ORALLY NOT-TAKING TRI-LINYAH 0.18/0.215/0.25 MG-35 MCG TABLET 1 TABLET ORALLY ONCE A DAY NOT-TAKING CYANOCOBALAMIN 500 MCG TABLET 1 TABLET ORALLY ONCE A DAY MEDICATION LIST REVIEWED AND RECONCILED WITH THE PATIENT PAST MEDICAL HISTORY MIGRAINES FIBROMYALGIA RIGHT KNEE CARTILAGE DEGENERATION SCOLIOSIS HERNIATED DISCS PSVT CONNECTIVE TISSUE DISEASE ALLERGIES FLEXERIL: MOOD CHANGES: SIDE EFFECTS LYRICA: INCREASES MIGRAINES: SIDE EFFECTS REVIEW OF SYSTEMS REVIEWED BY: PROVIDER: MERON MOREIRA . CONSTITUTIONAL: ANY CHANGE IN YOUR MEDICAL CONDITION? NO . CHILLS NO . FEVER NO . INFECTION: DO YOU HAVE NEW INFECTIONS? NO . DO YOU HAVE HISTORY OF MRSA? NO . MUSCULOSKELETAL: ANY NEW PATTERNS OF PAIN OR NUMBNESS? YES LEFT UPPER LEG . GASTROENTEROLOGY: ANY NEW CHANGE IN BOWEL CONTROL? NO . GENITOURINARY: ANY NEW CHANGE IN BLADDER CONTROL? NO . IS THERE A CHANCE YOU COULD BE ? NO . HEMATOLOGY/LYMPH: DO YOU TAKE ANY BLOOD THINNERS? (FOR EXAMPLE- COUMADIN, PLAVIX, AGGRENOX, PLATEL, PRADAXA, OR XARELTO) NO . WHEN WAS YOUR LAST DOSE? DATE: TIME: . NEUROLOGY: HAVE YOU FALLEN IN THE PAST 6 MONTHS? NO . ANY NEW EXTREMITY NUMBNESS OR WEAKNESS? NO . CARDIOLOGY: DO YOU HAVE A PACEMAKER OR DEFIBRILLATOR? NO . RESPIRATORY: HAVE YOU BEEN SICK IN THE PAST WEEK? NO . FEVER NO . FLU LIKE SYMPTOMS? NO . COUGH NO . INTEGUMENTARY: DO YOU HAVE ANY RASHES OR OPEN SORES? NO . ALLERGIC/IMMUNO: ARE YOU ALLERGIC TO SHELLFISH OR IV DYE? NO . ANY NEW ALLERGIES? NO . PSYCHIATRIC: DO YOU HAVE THOUGHTS OF HURTING YOURSELF OR SOMEONE ELSE? NO . ARE YOU ABUSED, NEGLECTED, OR IN AN UNSAFE ENVIRONMENT? NO . ENDOCRINOLOGY: ARE YOU DIABETIC? NO . OTHER: DO YOU NEED ANY PRESCRIPTIONS? NO . IF YES, PLEASE LIST: ____ . ANY NEW PROBLEMS WITH YOUR MEDICATIONS? NO . WHEN DID YOU LAST EAT? ____ . WHEN DID YOU LAST DRINK? ____ . WHAT DID YOU LAST DRINK? ____ . NAME OF PERSON DRIVING YOU HOME? ____ . DO YOU HAVE ANY OTHER QUESTIONS OR CONCERNS NO . VITAL SIGNS WT 100 LBS, HT 61 IN, BMI 18.89 INDEX, BP 99/60 MM HG, HR 80 /MIN, RR 18 /MIN, TEMP 97.5 F, OXYGEN SAT % 98, SAFE IN ENV? (Y/N) Y, REVIEWED BY: KG. EXAMINATION GENERAL EXAMINATION: LUNGS:LUNG SOUNDS ARE CLEAR. HEART:HEART RATE REGULAR. MUSCULOSKELETAL:*TRIGGER POINTS ELICITED WITH PALPATION OVER CERVICAL SPINOUS PROCESSES AND ACROSS THE TRAPEZIUS MUSCLES BILATERALLYL>R .RESTRICTION OF ROM IS NOTED. . ASSESSMENTS CONNECTIVE TISSUE DISEASE - M35.9 (PRIMARY) MYOFASCIAL PAIN - M79.1 TREATMENT CONNECTIVE TISSUE DISEASE REFILL TRAMADOL HCL TABLET, 50 MG, 1, ORALLY, Q4-6H MDD4, 30 DAY(S), 120, REFILLS 2, NOTES: 06/03/17 NOTES: TPI NECK. PREVENTIVE MEDICINE PAIN CLINIC TEACHING: PROCEDURE TEACHING PRE-PROCEDURE TEACHING DONE AND PATIENT VERBALIZES UNDERSTANDING.. PROCEDURE CODES FA211 ESTABILISHED PATIENT [facility] CHARGE DISPOSITION & COMMUNICATION FOLLOW UP 2WK POST (REASON: TPI NECK) ELECTRONICALLY SIGNED BY HARISH COOK ON 08/12/2017 AT 06:35 PM EDT DISCLAIMER : THIS IS A VISIT SUMMARY EXTRACTED FROM THE [employer] CHART. IT IS NOT A COPY OF THE [employer] PROGRESS NOTE. BRANDON
== END ==
LOC: M PAIN 14:45
PROVIDERS: ATTEND Nurse Practitioner Family
DX: M35.9 Systemic involvement of connective tissue, unspecified (principal); M79.1 Myalgia; M54.5 Low back pain; M54.2 Cervicalgia; G43.909 Migraine, unspecified, not intractable, without status migrainosus; Z79.891 Long term (current) use of opiate analgesic; Z79.899 Other long term (current) drug therapy; Z88.8 Allergy status to other drugs, medicaments and biological substances

== ENCOUNTER → 2017-08-17 | Outpatient (CLI) | payer OTHER ==
[~2017-08-17] MED LIST changes: +BUPIVACAINE HCL 0.25% 10 ML VIAL As Ordered ONE; +BUPIVACAINE HCL 0.25% 30 ML VIAL As Ordered ONE; +TRIAMCINOLONE ACETONIDE SUSP 40 MG/ML VIAL (J3301) As Ordered ONE
--- NOTE | 2017-08-18 00:10 | ECWPNPC ---
PATIENT NAME: DONNA MALDONADO : 1990 GENDER: FEMALE VISIT DATE: 08/17/2017 DISCHARGE DATE: 08/17/17 1657 VISIT LOCKED DATE TIME: PHYSICIAN: JAYMIE WHITE RESOURCE: JAYMIE WHITE REASON FOR APPOINTMENT 1. TPI NECK HISTORY OF PRESENT ILLNESS FALL RISK SCREENING: SCREENING :NO FALLS IN THE PAST YEAR PAIN SCREENING: PATIENT HAS A COMPLAINT OF ACUTE OR CHRONIC PAIN :YES CURRENT MEDICATIONS TAKING [id number] 50-300-40 MG CAPSULE 2 ORALLY DAILY NEEDED, NOTES: 2 DAYS AGO TAKING ZOFRAN 8 MG TABLET 1 TABLET ORALLY TID NEEDED, NOTES: 08/16 2PM TAKING REQUIP 0.5 MG TABLET ORALLY ONE AT SUPPER/ONE AT BEDTIME, NOTES: 08/16 8PM TAKING MICROGESTIN 1/20 1-20 MG-MCG TABLET 1 TABLET ORALLY DAILY FOR THREE WEEKS, 1 WEEK OFF, NOTES: 08/17 8AM TAKING ACETAMINOPHEN 500 MG CAPSULE 2 CAPSULES NEEDED ORALLY EVERY 6 HRS, NOTES: 2 WEEKS TAKING HYDROXYCHLOROQUINE SULFATE 200 MG TABLET 1 TABLET WITH FOOD OR MILK ORALLY ONCE A DAY, NOTES: 08/17 8AM TAKING GABAPENTIN 400 MG CAPSULE 1 CAPSULE ORALLY THREE TIMES A DAY, NOTES: 08/16 8PM TAKING MELOXICAM 15 MG TABLET 1 TABLET ORALLY ONCE A DAY, NOTES: 08/17 8AM TAKING ROBAXIN 500 MG TABLET 1-2 TABS ORALLY DAILY, NOTES: 08/16 9PM TAKING IBUPROFEN 200 MG TABLET 1 TABLET NEEDED ORALLY EVERY 6 HRS, NOTES: 08/16 8AM TAKING TRAMADOL HCL 50 MG TABLET 1 ORALLY Q4-6H MDD4, NOTES: 08/16 8PM NOT-TAKING METOPROLOL SUCCINATE 50 MG TABLET EXTENDED RELEASE ORALLY 25 MG TWICE DAILY NOT-TAKING TRAMADOL HCL 50 MG TABLET 1 TAB ORALLY EVERY 6 HOURS NEEDED/MMD#4 NOT-TAKING CYMBALTA 20 MG CAPSULE DELAYED RELEASE PARTICLES 1 CAPSULE ORALLY DAILY NOT-TAKING PREDNISOLONE 5 MG TABLET ORALLY DAILY NOT-TAKING SOMA 350 MG TABLET 1 TABLET NEEDED ORALLY BID PRN NOT-TAKING GABAPENTIN 400 MG CAPSULE 1 CAPSULE ORALLY THREE TIMES A DAY NOT-TAKING MELOXICAM 15 MG TABLET 1 TABLET ORALLY ONCE A DAY NOT-TAKING METOPROLOL SUCCINATE ER 50 MG TABLET EXTENDED RELEASE 24 HOUR 1/2 TAB ORALLY TWICE DAILY NOT-TAKING HYDROXYCHLOROQUINE SULFATE 200 MG TABLET 1 TABLET WITH FOOD OR MILK ORALLY ONCE A DAY NOT-TAKING MICROGESTIN FE 12/18 1-20 MG-MCG TABLET ORALLY NOT-TAKING TRI-LINYAH 0.18/0.215/0.25 MG-35 MCG TABLET 1 TABLET ORALLY ONCE A DAY NOT-TAKING CYANOCOBALAMIN 500 MCG TABLET 1 TABLET ORALLY ONCE A DAY MEDICATION LIST REVIEWED AND RECONCILED WITH THE PATIENT PAST MEDICAL HISTORY MIGRAINES FIBROMYALGIA RIGHT KNEE CARTILAGE DEGENERATION SCOLIOSIS HERNIATED DISCS PSVT CONNECTIVE TISSUE DISEASE ALLERGIES FLEXERIL: MOOD CHANGES: SIDE EFFECTS LYRICA: INCREASES MIGRAINES: SIDE EFFECTS SOCIAL HISTORY GENERAL: TOBACCO USE ARE YOU A:NONSMOKER CAFFEINE CAFFEINE USE?YES HOW OFTEN AND HOW MUCH? 2-4 GLASSES PAIN CLINIC PFS, CLERGY, PUBLIC HEALTH REFERRALS PFS REFERRAL NEEDED?NO CLERGY REFERRAL NEEDED?NO PUBLIC HEALTH REFERRAL NEEDED?NO WAS THE PROVIDER NOTIFIED OF ANY PERTINENT INFO?YES HAS THE PATIENT BEEN EDUCATED REGARDING HIS/HER PLAN OF CARE?YES PLEASE DOCUMENT ANY ADDTIONAL DETAILS. TRIGGER POINT INJECTIONS UPPER BACK AND LOWER BACK HAS THE PATIENT BEEN EDUCATED REGARDING PAIN, THE RISK FOR PAIN, THE IMPORTANCE OF EFFECTIVE PAIN MANAGEMENT, AND THE PAIN ASSESSMENT PROCESS?YES REVIEWED BY: CHARIS. PATIENT: ____. REVIEW OF SYSTEMS REVIEWED BY: PROVIDER: . CONSTITUTIONAL: ANY CHANGE IN YOUR MEDICAL CONDITION? NO . CHILLS NO . FEVER NO . INFECTION: DO YOU HAVE NEW INFECTIONS? NO . DO YOU HAVE HISTORY OF MRSA? NO . MUSCULOSKELETAL: ANY NEW PATTERNS OF PAIN OR NUMBNESS? NO . SYTEMIC LUPUS NO . GASTROENTEROLOGY: ANY NEW CHANGE IN BOWEL CONTROL? NO . BARRETTS ESOPHAGUS NO . CIRRHOSIS NO . HEPATITIS NO . LIVER FAILURE NO . ACID REFLUX NO . UNEXPLAINED WEIGHT LOSS NO . GENITOURINARY: ANY NEW CHANGE IN BLADDER CONTROL? NO . IS THERE A CHANCE YOU COULD BE ? NO . HEMATOLOGY/LYMPH: DO YOU TAKE ANY BLOOD THINNERS? (FOR EXAMPLE- COUMADIN, PLAVIX, AGGRENOX, PLATEL, PRADAXA, OR XARELTO) NO . WHEN WAS YOUR LAST DOSE? DATE: TIME: . LOW PLATELET COUNT NO . SICKLE CELL DISEASE NO . VON WILLIEBRANDS NO . FACTOR V LEIDEN NO . THALLASEMIA NO . ANEMIA NO . EASY BRUISING NO . NEUROLOGY: HAVE YOU FALLEN IN THE PAST 6 MONTHS? NO . ANY NEW EXTREMITY NUMBNESS OR WEAKNESS? NO . HEAD INJURY NO . DEMENTIA NO . CEREBRAL PALSY NO . MULTIPLE SCLEROSIS NO . DIZZINESS NO . HEADACHE NO . STROKES NO . VERTIGO NO . CARDIOLOGY: DO YOU HAVE A PACEMAKER OR DEFIBRILLATOR? NO . ANGINA NO . HEART ATTACK NO . HEART SURGERY NO . CONGESTIVE HEART FAILURE/FLUID OVERLOAD NO . CHEST PAIN NO . HIGH BLOOD PRESSURE NO . IRREGULAR HEART BEAT NO . RESPIRATORY: HAVE YOU BEEN SICK IN THE PAST WEEK? NO . FEVER NO . FLU LIKE SYMPTOMS? NO . CPAP NO . BYPAP NO . ASTHMA NO . EMPHYSEMA NO . CHRONIC LUNG DISEASES NO . SHORTNESS OF BREATH ON EXERTION NO . COUGH NO . SNORING NO . INTEGUMENTARY: DO YOU HAVE ANY RASHES OR OPEN SORES? NO . ALLERGIC/IMMUNO: ARE YOU ALLERGIC TO SHELLFISH OR IV DYE? NO . ANY NEW ALLERGIES? NO . PSYCHIATRIC: DO YOU HAVE THOUGHTS OF HURTING YOURSELF OR SOMEONE ELSE? NO . ARE YOU ABUSED, NEGLECTED, OR IN AN UNSAFE ENVIRONMENT? NO . ENDOCRINOLOGY: ARE YOU DIABETIC? NO . THYROID DISORDER NO . OTHER: DO YOU NEED ANY PRESCRIPTIONS? NO . IF YES, PLEASE LIST: ____ . ANY NEW PROBLEMS WITH YOUR MEDICATIONS? NO . WHEN DID YOU LAST EAT? 8:30AM . WHEN DID YOU LAST DRINK? 9AM . WHAT DID YOU LAST DRINK? YEMI SYKES . NAME OF PERSON DRIVING YOU HOME? FEI . DO YOU HAVE ANY OTHER QUESTIONS OR CONCERNS NO . VITAL SIGNS WT 99 LBS, HT 61 IN, BMI 18.70 INDEX, BP 93/54 MM HG, HR 82 /MIN, RR 18 /MIN, TEMP 98.2 F, OXYGEN SAT % 99%, SAFE IN ENV? (Y/N) Y, NA INITIALS AW 1512, REVIEWED BY: CHARIS. ASSESSMENTS MYALGIA - M79.1 (PRIMARY) PROCEDURES PN TRIGGER POINT INJECTION WITH STEROIDS PRE PROCEDURE DIAGNOSIS 1. MYALGIA 2. PAIN AT BILATERAL SHOULDER AREA, RIGHT THORACIC AREA, AND RIGHT LOWER BACK AREA POST PROCEDURE DIAGNOSIS 1. MYALGIA 2. PAIN AT BILATERAL SHOULDER AREA, RIGHT THORACIC AREA, AND RIGHT LOWER BACK AREA PROCEDURE TRIGGER POINT INJECTION AT BILATERAL SHOULDER AREA, RIGHT THORACIC AREA, AND RIGHT LOWER BACK AREA SURGEON DR. JAYMIE WHITE MAJOR CASE DETECTIVE NONE ANESTHESIA LOCAL PRE PROCEDURE NOTE THE PATIENT HAS A HISTORY OF CHRONIC PAIN AT THE RIGHT AND LEFT SHOULDER AREA, RIGHT THORACIC AREA, AND RIGHT LOWER BACK AREA. I EVALUATE THE PATIENT AND REVIEWED THE CHART. THERE IS EVIDENCE OF BANDS OF TISSUE WITH RESTRICTION OF MOVEMENT AND PRESENCE OF TRIGGER POINT AT THE AFFECTED AREA. I WENT OVER THE RISKS, ALTERNATIVES, AND BENEFITS ASSOCIATED WITH THIS PROCEDURE. THE PATIENT WOULD LIKE TO PROCEED AND GIVE CONSENT TO PERFORMED THE PROCEDURE. THE PATIENT DENIES UNEXPLAINABLE WEIGHT LOSS, FEVER, CHILLS, OR NEW CHANGES IN URINARY OR BOWEL CONTROL DESCRIPTION OF PROCEDURE THE PATIENT WAS BROUGHT TO THE PROCEDURE ROOM AND PLACED IN THE SITTING POSITION. THE AREA WAS CLEANED WITH ALCOHOL. THE PROCEDURE WAS DONE USING ASEPTIC STERILE TECHNIQUE. I CHECKED LATERALITY AND THE LEVEL WHERE THE PROCEDURE WAS GOING TO BE PERFORMED WITH THE PATIENT AND THE SUPPORTING STAFF AT THE MOMENT OF THE TIME OUT IN THE PROCEDURE ROOM. USING A 25-GAUGE NEEDLE, TRIGGER POINTS WERE INJECTED AT THE RIGHT AND LEFT SHOULDER AREA, RIGHT THORACIC AREA, AND RIGHT LOWER BACK AREA WITH A TOTAL OF 40 ML OF BUPIVACAINE 0.25% AND KENALOG 40 MG. THERE WAS NO EVIDENCE OF BLOOD, PARESTHESIA OR CEREBROSPINAL FLUID DURING THE PROCEDURE. THE PATIENT WAS SENT TO THE RECOVERY ROOM. THE PATIENT WAS MOVING THE EXTREMITIES AND DOING WELL. THERE WAS NO COMPLICATION DURING THE PROCEDURE POST PROCEDURE NOTE THE PATIENT WILL BE SEEN IN A FOLLOW UP IN THE NEXT FEW WEEKS. INSTRUCTIONS WERE GIVEN, QUESTIONS WERE ANSWERED, AND THE PATIENT EXPRESSED UNDERSTANDING AND AGREES WITH THE PLAN. I, JOO MAURICIO, DOCUMENTED THE ABOVE INFORMATION ACTING A SCRIBE FOR DR. WHITE. I, DR. WHITE, HAVE REVIEWED THE ABOVE DOCUMENT, SCRIBED BY JOO MAURICIO, AND I VERIFY THAT IT IS ACCURATE PROCEDURE CODES 10974 INJECT TRIGGER POINTS 3/> DISPOSITION & COMMUNICATION FOLLOW UP 3 WEEKS ELECTRONICALLY SIGNED BY JAYMIE WHITE MD ON 08/17/2017 AT 09:22 PM EDT DISCLAIMER : THIS IS A VISIT SUMMARY EXTRACTED FROM THE [employer] CHART. IT IS NOT A COPY OF THE [employer] PROGRESS NOTE. BRANDON
== END ==
LOC: M PAIN 15:15
PROVIDERS: ATTEND Anesthesiology
DX: G89.29 Other chronic pain (principal); M25.511 Pain in right shoulder; M25.512 Pain in left shoulder; M54.6 Pain in thoracic spine; M54.5 Low back pain; M79.1 Myalgia; Z88.8 Allergy status to other drugs, medicaments and biological substances; Z79.1 Long term (current) use of non-steroidal anti-inflammatories (NSAID); Z79.891 Long term (current) use of opiate analgesic; Z79.899 Other long term (current) drug therapy
CPT/HCPCS: 20553; J3301

== ENCOUNTER → 2017-08-31 | Outpatient (CLI) | payer OTHER ==
[~2017-08-31] MED LIST changes: -BUPIVACAINE HCL 0.25% 10 ML VIAL As Ordered ONE; -BUPIVACAINE HCL 0.25% 30 ML VIAL As Ordered ONE; -TRIAMCINOLONE ACETONIDE SUSP 40 MG/ML VIAL (J3301) As Ordered ONE
--- NOTE | 2017-09-21 01:48 | ECWPNPC ---
PATIENT NAME: DONNA MALDONADO : 1990 GENDER: FEMALE VISIT DATE: 08/31/2017 DISCHARGE DATE: 08/31/17 1510 VISIT LOCKED DATE TIME: PHYSICIAN: MERON RAMOS RESOURCE: MERON RAMOS REASON FOR APPOINTMENT 1. POST TPI HISTORY OF PRESENT ILLNESS HISTORY OF PRESENT ILLNESS: HERE FOR POST PROCEDURE F/U AND MANAGEMENT OF CHRONIC SHOULDERS AND THORACIC SPINE PAIN.HAD TPI BILATERAL SHOULDER,RIGHT THORACIC AND LOW BACK REGION.REPORTS >50% RELIEF THAT CONTINUES TODAY.RATING PAIN VAS 6/10.PAIN IS RIGHT NECK AND RIGH SCAPULAR AREA. PAIN THE PATIENT DESCRIBES THE PAIN... FALL RISK SCREENING: SCREENING :NO FALLS IN THE PAST YEAR CURRENT MEDICATIONS TAKING PROPRANOLOL HCL 20 MG TABLET 1 TABLET ORALLY TWICE A DAY TAKING [id number] 50-300-40 MG CAPSULE 2 ORALLY DAILY NEEDED TAKING ZOFRAN 8 MG TABLET 1 TABLET ORALLY TID NEEDED TAKING REQUIP 0.5 MG TABLET ORALLY ONE AT SUPPER/ONE AT BEDTIME TAKING MICROGESTIN 1/20 1-20 MG-MCG TABLET 1 TABLET ORALLY DAILY FOR THREE WEEKS, 1 WEEK OFF TAKING ACETAMINOPHEN 500 MG CAPSULE 2 CAPSULES NEEDED ORALLY EVERY 6 HRS TAKING HYDROXYCHLOROQUINE SULFATE 200 MG TABLET 1 TABLET WITH FOOD OR MILK ORALLY ONCE A DAY TAKING GABAPENTIN 400 MG CAPSULE 1 CAPSULE ORALLY THREE TIMES A DAY TAKING MELOXICAM 15 MG TABLET 1 TABLET ORALLY ONCE A DAY TAKING ROBAXIN 500 MG TABLET 1-2 TABS ORALLY DAILY TAKING IBUPROFEN 200 MG TABLET 1 TABLET NEEDED ORALLY EVERY 6 HRS TAKING TRAMADOL HCL 50 MG TABLET 1 ORALLY Q4-6H MDD4 TAKING PREDNISOLONE 5 MG TABLET ORALLY DAILY NOT-TAKING METOPROLOL SUCCINATE 50 MG TABLET EXTENDED RELEASE ORALLY 25 MG TWICE DAILY NOT-TAKING TRAMADOL HCL 50 MG TABLET 1 TAB ORALLY EVERY 6 HOURS NEEDED/MMD#4 NOT-TAKING CYMBALTA 20 MG CAPSULE DELAYED RELEASE PARTICLES 1 CAPSULE ORALLY DAILY NOT-TAKING SOMA 350 MG TABLET 1 TABLET NEEDED ORALLY BID PRN NOT-TAKING GABAPENTIN 400 MG CAPSULE 1 CAPSULE ORALLY THREE TIMES A DAY NOT-TAKING MELOXICAM 15 MG TABLET 1 TABLET ORALLY ONCE A DAY NOT-TAKING METOPROLOL SUCCINATE ER 50 MG TABLET EXTENDED RELEASE 24 HOUR 1/2 TAB ORALLY TWICE DAILY NOT-TAKING HYDROXYCHLOROQUINE SULFATE 200 MG TABLET 1 TABLET WITH FOOD OR MILK ORALLY ONCE A DAY NOT-TAKING MICROGESTIN FE 1/20 1-20 MG-MCG TABLET ORALLY NOT-TAKING TRI-LINYAH 0.18/0.215/0.25 MG-35 MCG TABLET 1 TABLET ORALLY ONCE A DAY NOT-TAKING CYANOCOBALAMIN 500 MCG TABLET 1 TABLET ORALLY ONCE A DAY MEDICATION LIST REVIEWED AND RECONCILED WITH THE PATIENT PAST MEDICAL HISTORY MIGRAINES FIBROMYALGIA RIGHT KNEE CARTILAGE DEGENERATION SCOLIOSIS HERNIATED DISCS PSVT CONNECTIVE TISSUE DISEASE ALLERGIES FLEXERIL: MOOD CHANGES: SIDE EFFECTS LYRICA: INCREASES MIGRAINES: SIDE EFFECTS SURGICAL HISTORY TONSILECTOMY 1999 2013 SOCIAL HISTORY GENERAL: TOBACCO USE ARE YOU A:NONSMOKER CAFFEINE CAFFEINE USE?YES HOW OFTEN AND HOW MUCH? 2-4 GLASSES MORMONISM [id number] NONE LANGUAGE LANGUAGES SPOKEN:LUXEMBOURGER LEARNING BARRIERS / SPECIAL NEEDS BARRIERS TO LEARNING?NO HEARING IMPAIRED?NO VISION IMPAIRED?NO COGNITIVELY IMPAIRED?NO READINESS TO LEARN?YES LEARNING PREFERENCES?NO LEARNING CAPABILITIES PRESENT?YES EMOTIONAL BARRIERS?NO SPECIAL DEVICES?NO CERTIFIED ETHICAL HACKER NEEDED?NO PAIN CLINIC PFS, CLERGY, PUBLIC HEALTH REFERRALS PFS REFERRAL NEEDED?NO CLERGY REFERRAL NEEDED?NO PUBLIC HEALTH REFERRAL NEEDED?NO WAS THE PROVIDER NOTIFIED OF ANY PERTINENT INFO?YES HAS THE PATIENT BEEN EDUCATED REGARDING HIS/HER PLAN OF CARE?YES PLEASE DOCUMENT ANY ADDTIONAL DETAILS. TRIGGER POINT INJECTIONS UPPER BACK AND LOWER BACK HAS THE PATIENT BEEN EDUCATED REGARDING PAIN, THE RISK FOR PAIN, THE IMPORTANCE OF EFFECTIVE PAIN MANAGEMENT, AND THE PAIN ASSESSMENT PROCESS?YES REVIEWED BY: CHARIS. PATIENT: ____. ADVANCE DIRECTIVES HEALTH CARE PROXY?NO WOULD YOU LIKE MORE INFORMATION?NO DO YOU HAVE A DNR?NO WOULD YOU LIKE MORE INFORMATION?NO LIVING WILL?NO WOULD YOU LIKE MORE INFORMATION?NO POWER OF PATTERNATOR?NO WOULD YOU LIKE MORE INFORMATION?NO HOSPITALIZATION/MAJOR DIAGNOSTIC PROCEDURE SEE ABOVE REVIEW OF SYSTEMS REVIEWED BY: PROVIDER: MERON MOREIRA . CONSTITUTIONAL: ANY CHANGE IN YOUR MEDICAL CONDITION? NO . CHILLS NO . FEVER NO . INFECTION: DO YOU HAVE NEW INFECTIONS? NO . DO YOU HAVE HISTORY OF MRSA? NO . MUSCULOSKELETAL: ANY NEW PATTERNS OF PAIN OR NUMBNESS? NO . GASTROENTEROLOGY: ANY NEW CHANGE IN BOWEL CONTROL? NO . GENITOURINARY: ANY NEW CHANGE IN BLADDER CONTROL? NO . IS THERE A CHANCE YOU COULD BE ? NO . HEMATOLOGY/LYMPH: DO YOU TAKE ANY BLOOD THINNERS? (FOR EXAMPLE- COUMADIN, PLAVIX, AGGRENOX, PLATEL, PRADAXA, OR XARELTO) NO . WHEN WAS YOUR LAST DOSE? DATE: TIME: . NEUROLOGY: HAVE YOU FALLEN IN THE PAST 6 MONTHS? NO . ANY NEW EXTREMITY NUMBNESS OR WEAKNESS? NO . CARDIOLOGY: DO YOU HAVE A PACEMAKER OR DEFIBRILLATOR? NO . RESPIRATORY: HAVE YOU BEEN SICK IN THE PAST WEEK? NO . FEVER NO . FLU LIKE SYMPTOMS? NO . COUGH NO . INTEGUMENTARY: DO YOU HAVE ANY RASHES OR OPEN SORES? NO . ALLERGIC/IMMUNO: ARE YOU ALLERGIC TO SHELLFISH OR IV DYE? NO . ANY NEW ALLERGIES? NO . PSYCHIATRIC: DO YOU HAVE THOUGHTS OF HURTING YOURSELF OR SOMEONE ELSE? NO . ARE YOU ABUSED, NEGLECTED, OR IN AN UNSAFE ENVIRONMENT? NO . ENDOCRINOLOGY: ARE YOU DIABETIC? NO . OTHER: DO YOU NEED ANY PRESCRIPTIONS? NO . IF YES, PLEASE LIST: ____ . ANY NEW PROBLEMS WITH YOUR MEDICATIONS? NO . WHEN DID YOU LAST EAT? ____ . WHEN DID YOU LAST DRINK? ____ . WHAT DID YOU LAST DRINK? ____ . NAME OF PERSON DRIVING YOU HOME? ____ . DO YOU HAVE ANY OTHER QUESTIONS OR CONCERNS NO . VITAL SIGNS WT 99 LBS, HT 61 IN, BMI 18.70 INDEX, BP 112/70 MM HG, HR 79 /MIN, RR 16 /MIN, TEMP 97.7 F, OXYGEN SAT % 98%, NA INITIALS SC 14:23, REVIEWED BY: SENG. EXAMINATION GENERAL EXAMINATION: LUNGS:LUNG SOUNDS ARE CLEAR. HEART:HEART RATE REGULAR. MUSCULOSKELETAL:*TRIGGER POINTS ELICITED WITH PALPATION OVER CERVICAL SPINOUS PROCESSES AND ACROSS THE TRAPEZIUS MUSCLES BILATERALLYL>R .RESTRICTION OF ROM IS NOTED. . 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 PREVENTIVE MEDICINE PAIN CLINIC TEACHING: PROCEDURE TEACHING PRE-PROCEDURE TEACHING DONE. PATIENT VERBALIZES UNDERSTANDING.. PROCEDURE CODES FA211 ESTABILISHED PATIENT [facility] CHARGE DISPOSITION & COMMUNICATION FOLLOW UP 2WK POST (REASON: TPI UPPER BACK/RIGHT) ELECTRONICALLY SIGNED BY HARISH COOK ON 09/20/2017 AT 07:22 PM EDT DISCLAIMER : THIS IS A VISIT SUMMARY EXTRACTED FROM THE [employer] CHART. IT IS NOT A COPY OF THE [employer] PROGRESS NOTE. BRANDON
== END ==
LOC: M PAIN 14:15
PROVIDERS: ATTEND Nurse Practitioner Family
DX: G89.29 Other chronic pain (principal); M35.9 Systemic involvement of connective tissue, unspecified; M79.7 Fibromyalgia; G43.909 Migraine, unspecified, not intractable, without status migrainosus; Z88.8 Allergy status to other drugs, medicaments and biological substances; Z79.891 Long term (current) use of opiate analgesic; Z79.52 Long term (current) use of systemic steroids; Z79.899 Other long term (current) drug therapy

== ENCOUNTER → 2017-09-21 | Outpatient (CLI) | payer OTHER ==
[~2017-09-21] MED LIST changes: +BUPIVACAINE HCL 0.25% 10 ML VIAL As Ordered ONE; +BUPIVACAINE HCL 0.25% 30 ML VIAL As Ordered ONE; +TRIAMCINOLONE ACETONIDE SUSP 40 MG/ML VIAL (J3301) As Ordered ONE
--- NOTE | 2017-09-26 23:49 | ECWPNPC ---
PATIENT NAME: DONNA MALDONADO : 1990 GENDER: FEMALE VISIT DATE: 09/21/2017 DISCHARGE DATE: 09/21/17 1456 VISIT LOCKED DATE TIME: PHYSICIAN: JAYMIE WHITE RESOURCE: JAYMIE WHITE REASON FOR APPOINTMENT 1. UPPER BACK/RIGHT HISTORY OF PRESENT ILLNESS HISTORY OF PRESENT ILLNESS: PAIN THE PATIENT DESCRIBES THE PAIN... FALL RISK SCREENING: SCREENING :NO FALLS IN THE PAST YEAR CURRENT MEDICATIONS TAKING PROPRANOLOL HCL 20 MG TABLET 1 TABLET ORALLY TWICE A DAY, NOTES: 09-21-17729 TAKING [id number] 50-300-40 MG CAPSULE 2 ORALLY DAILY NEEDED, NOTES: FEW DAYS TAKING ZOFRAN 8 MG TABLET 1 TABLET ORALLY TID NEEDED, NOTES: 09-20-172029 TAKING REQUIP 0.5 MG TABLET ORALLY ONE AT SUPPER/ONE AT BEDTIME, NOTES: 09-20-172029 TAKING MICROGESTIN 1/20 1-20 MG-MCG TABLET 1 TABLET ORALLY DAILY FOR THREE WEEKS, 1 WEEK OFF, NOTES: WEEK AGO TAKING ACETAMINOPHEN 500 MG CAPSULE 2 CAPSULES NEEDED ORALLY EVERY 6 HRS, NOTES: 09-19-17 TAKING HYDROXYCHLOROQUINE SULFATE 200 MG TABLET 1 TABLET WITH FOOD OR MILK ORALLY ONCE A DAY, NOTES: 09-21-17729 TAKING IBUPROFEN 200 MG TABLET 1 TABLET NEEDED ORALLY EVERY 6 HRS, NOTES: NONE TAKING GABAPENTIN 600 MG TABLET 1 CAPSULE ORALLY THREE TIMES A DAY, NOTES: 09-21-17729 TAKING MELOXICAM 15 MG TABLET 1 TABLET ORALLY ONCE A DAY, NOTES: 09-21-17729 TAKING ROBAXIN 500 MG TABLET 1-2 TABS ORALLY DAILY, NOTES: 09-20-172099 TAKING TRAMADOL HCL 50 MG TABLET 1 ORALLY Q4-6H MDD4, NOTES: 09-21-17729 NOT-TAKING PREDNISOLONE 5 MG TABLET ORALLY DAILY, NOTES: WEEK AGO DISCONTINUED METOPROLOL SUCCINATE 50 MG TABLET EXTENDED RELEASE ORALLY 25 MG TWICE DAILY DISCONTINUED TRAMADOL HCL 50 MG TABLET 1 TAB ORALLY EVERY 6 HOURS NEEDED/MMD#4 DISCONTINUED CYMBALTA 20 MG CAPSULE DELAYED RELEASE PARTICLES 1 CAPSULE ORALLY DAILY DISCONTINUED SOMA 350 MG TABLET 1 TABLET NEEDED ORALLY BID PRN DISCONTINUED GABAPENTIN 400 MG CAPSULE 1 CAPSULE ORALLY THREE TIMES A DAY DISCONTINUED MELOXICAM 15 MG TABLET 1 TABLET ORALLY ONCE A DAY DISCONTINUED METOPROLOL SUCCINATE ER 50 MG TABLET EXTENDED RELEASE 24 HOUR /2 TAB ORALLY TWICE DAILY DISCONTINUED HYDROXYCHLOROQUINE SULFATE 200 MG TABLET 1 TABLET WITH FOOD OR MILK ORALLY ONCE A DAY DISCONTINUED MICROGESTIN FE 12/18 1-20 MG-MCG TABLET ORALLY DISCONTINUED TRI-LINYAH 0.18/0.215/0.25 MG-35 MCG TABLET 1 TABLET ORALLY ONCE A DAY DISCONTINUED CYANOCOBALAMIN 500 MCG TABLET 1 TABLET ORALLY ONCE A DAY MEDICATION LIST REVIEWED AND RECONCILED WITH THE PATIENT PAST MEDICAL HISTORY MIGRAINES FIBROMYALGIA RIGHT KNEE CARTILAGE DEGENERATION SCOLIOSIS HERNIATED DISCS PSVT CONNECTIVE TISSUE DISEASE ALLERGIES FLEXERIL: MOOD CHANGES: SIDE EFFECTS LYRICA: INCREASES MIGRAINES: SIDE EFFECTS SOCIAL HISTORY GENERAL: TOBACCO USE ARE YOU A:NONSMOKER CAFFEINE CAFFEINE USE?YES HOW OFTEN AND HOW MUCH? 2-4 GLASSES ORTHODOXY [id number] NONE LANGUAGE LANGUAGES SPOKEN:DANISH LEARNING BARRIERS / SPECIAL NEEDS BARRIERS TO LEARNING?NO HEARING IMPAIRED?NO VISION IMPAIRED?NO COGNITIVELY IMPAIRED?NO READINESS TO LEARN?YES LEARNING PREFERENCES?NO LEARNING CAPABILITIES PRESENT?YES EMOTIONAL BARRIERS?NO SPECIAL DEVICES?NO TREE KILLER NEEDED?NO PAIN CLINIC PFS, CLERGY, PUBLIC HEALTH REFERRALS PFS REFERRAL NEEDED?NO CLERGY REFERRAL NEEDED?NO PUBLIC HEALTH REFERRAL NEEDED?NO WAS THE PROVIDER NOTIFIED OF ANY PERTINENT INFO?YES HAS THE PATIENT BEEN EDUCATED REGARDING HIS/HER PLAN OF CARE?YES PLEASE DOCUMENT ANY ADDTIONAL DETAILS. TRIGGER POINT INJECTIONS UPPER BACK AND LOWER BACK HAS THE PATIENT BEEN EDUCATED REGARDING PAIN, THE RISK FOR PAIN, THE IMPORTANCE OF EFFECTIVE PAIN MANAGEMENT, AND THE PAIN ASSESSMENT PROCESS?YES REVIEWED BY: CHARIS. PATIENT: ____. ADVANCE DIRECTIVES HEALTH CARE PROXY?NO WOULD YOU LIKE MORE INFORMATION?NO DO YOU HAVE A DNR?NO WOULD YOU LIKE MORE INFORMATION?NO LIVING WILL?NO WOULD YOU LIKE MORE INFORMATION?NO POWER OF BOWLING BALL ASSEMBLER?NO WOULD YOU LIKE MORE INFORMATION?NO REVIEW OF SYSTEMS REVIEWED BY: PROVIDER: . CONSTITUTIONAL: ANY CHANGE IN YOUR MEDICAL CONDITION? NO . CHILLS NO . FEVER NO . INFECTION: DO YOU HAVE NEW INFECTIONS? NO . DO YOU HAVE HISTORY OF MRSA? NO . MUSCULOSKELETAL: ANY NEW PATTERNS OF PAIN OR NUMBNESS? NO . GASTROENTEROLOGY: ANY NEW CHANGE IN BOWEL CONTROL? NO . GENITOURINARY: ANY NEW CHANGE IN BLADDER CONTROL? NO . IS THERE A CHANCE YOU COULD BE ? NO . HEMATOLOGY/LYMPH: DO YOU TAKE ANY BLOOD THINNERS? (FOR EXAMPLE- COUMADIN, PLAVIX, AGGRENOX, PLATEL, PRADAXA, OR XARELTO) NO . WHEN WAS YOUR LAST DOSE? DATE: TIME: . NEUROLOGY: HAVE YOU FALLEN IN THE PAST 6 MONTHS? NO . ANY NEW EXTREMITY NUMBNESS OR WEAKNESS? NO . CARDIOLOGY: DO YOU HAVE A PACEMAKER OR DEFIBRILLATOR? NO . RESPIRATORY: HAVE YOU BEEN SICK IN THE PAST WEEK? NO . FEVER NO . FLU LIKE SYMPTOMS? NO . COUGH NO . INTEGUMENTARY: DO YOU HAVE ANY RASHES OR OPEN SORES? NO . ALLERGIC/IMMUNO: ARE YOU ALLERGIC TO SHELLFISH OR IV DYE? NO . ANY NEW ALLERGIES? NO . PSYCHIATRIC: DO YOU HAVE THOUGHTS OF HURTING YOURSELF OR SOMEONE ELSE? NO . ARE YOU ABUSED, NEGLECTED, OR IN AN UNSAFE ENVIRONMENT? NO . ENDOCRINOLOGY: ARE YOU DIABETIC? NO . OTHER: DO YOU NEED ANY PRESCRIPTIONS? NO . IF YES, PLEASE LIST: ____ . ANY NEW PROBLEMS WITH YOUR MEDICATIONS? NO . WHEN DID YOU LAST EAT? 09-21-17 0700 . WHEN DID YOU LAST DRINK? 09-21-17 1000 . WHAT DID YOU LAST DRINK? APPLE JUICE . NAME OF PERSON DRIVING YOU HOME? KAMLA . DO YOU HAVE ANY OTHER QUESTIONS OR CONCERNS NO . VITAL SIGNS WT 95.4 LBS, HT 61 IN, BMI 18.02 INDEX, BP 103/69 MM HG, HR 74 /MIN, RR 16 /MIN, TEMP 98.0 F, OXYGEN SAT % 98%, NA INITIALS AW 308, REVIEWED BY: CM. ASSESSMENTS MYALGIA - M79.1 (PRIMARY) PROCEDURES PN TRIGGER POINT INJECTION WITH STEROIDS PRE PROCEDURE DIAGNOSIS 1. MYALGIA 2. PAIN AT RIGHT NECK AREA, BILATERAL THORACIC AREA, AND RIGHT LOWER BACK AREA POST PROCEDURE DIAGNOSIS 1. MYALGIA 2. PAIN AT RIGHT NECK AREA, BILATERAL THORACIC AREA, AND RIGHT LOWER BACK AREA PROCEDURE TRIGGER POINT INJECTION AT RIGHT NECK AREA, BILATERAL THORACIC AREA, AND RIGHT LOWER BACK AREA SURGEON DR. JAYMIE WHITE LEAD RECREATION ASSISTANT NONE ANESTHESIA LOCAL PRE PROCEDURE NOTE THE PATIENT HAS A HISTORY OF CHRONIC PAIN AT THE RIGHT NECK AREA, RIGHT AND LEFT THORACIC AREA AND RIGHT LOWER BACK AREA. I EVALUATE THE PATIENT AND REVIEWED THE CHART. THERE IS EVIDENCE OF BANDS OF TISSUE WITH RESTRICTION OF MOVEMENT AND PRESENCE OF TRIGGER POINT AT THE AFFECTED AREA. I WENT OVER THE RISKS, ALTERNATIVES, AND BENEFITS ASSOCIATED WITH THIS PROCEDURE. THE PATIENT WOULD LIKE TO PROCEED AND GIVE CONSENT TO PERFORMED THE PROCEDURE. THE PATIENT DENIES UNEXPLAINABLE WEIGHT LOSS, FEVER, CHILLS, OR NEW CHANGES IN URINARY OR BOWEL CONTROL DESCRIPTION OF PROCEDURE THE PATIENT WAS BROUGHT TO THE PROCEDURE ROOM AND PLACED IN THE SITTING POSITION. THE AREA WAS CLEANED WITH ALCOHOL. THE PROCEDURE WAS DONE USING ASEPTIC STERILE TECHNIQUE. I CHECKED LATERALITY AND THE LEVEL WHERE THE PROCEDURE WAS GOING TO BE PERFORMED WITH THE PATIENT AND THE SUPPORTING STAFF AT THE MOMENT OF THE TIME OUT IN THE PROCEDURE ROOM. USING A 25-GAUGE NEEDLE, TRIGGER POINTS WERE INJECTED AT THE RIGHT NECK AREA, RIGHT AND LEFT THORACIC AREA AND RIGHT LOWER BACK AREA WITH A TOTAL OF 40 ML OF BUPIVACAINE 0.25% AND KENALOG 40 MG. THERE WAS NO EVIDENCE OF BLOOD, PARESTHESIA OR CEREBROSPINAL FLUID DURING THE PROCEDURE. THE PATIENT WAS SENT TO THE RECOVERY ROOM. THE PATIENT WAS MOVING THE EXTREMITIES AND DOING WELL. THERE WAS NO COMPLICATION DURING THE PROCEDURE POST PROCEDURE NOTE THE PATIENT WILL BE SEEN IN A FOLLOW UP IN THE NEXT FEW WEEKS. INSTRUCTIONS WERE GIVEN, QUESTIONS WERE ANSWERED, AND THE PATIENT EXPRESSED UNDERSTANDING AND AGREES WITH THE PLAN. I, JOO MAURICIO, DOCUMENTED THE ABOVE INFORMATION ACTING A SCRIBE FOR DR. WHITE. I HAVE REVIEWED THE ABOVE DOCUMENT, WRITTEN BY JOO ALBERTS AND I VERIFY THAT IT IS ACCURATE PROCEDURE CODES 16627 INJECT TRIGGER POINTS 3/> DISPOSITION & COMMUNICATION FOLLOW UP 3 WEEKS ELECTRONICALLY SIGNED BY JAYMIE WHITE MD ON 09/26/2017 AT 07:57 PM EDT DISCLAIMER : THIS IS A VISIT SUMMARY EXTRACTED FROM THE [employer] CHART. IT IS NOT A COPY OF THE [employer] PROGRESS NOTE. BRANDON
== END ==
LOC: M PAIN 13:00
PROVIDERS: ATTEND Anesthesiology
DX: G89.29 Other chronic pain (principal); M54.2 Cervicalgia; M54.6 Pain in thoracic spine; M54.5 Low back pain; M79.1 Myalgia; G43.909 Migraine, unspecified, not intractable, without status migrainosus; Z88.8 Allergy status to other drugs, medicaments and biological substances; Z79.891 Long term (current) use of opiate analgesic; Z79.899 Other long term (current) drug therapy
CPT/HCPCS: 20553; J3301

== ENCOUNTER → 2017-10-11 | Outpatient (CLI) | payer OTHER ==
[~2017-10-11] MED LIST changes: -BUPIVACAINE HCL 0.25% 10 ML VIAL As Ordered ONE; -BUPIVACAINE HCL 0.25% 30 ML VIAL As Ordered ONE; -TRIAMCINOLONE ACETONIDE SUSP 40 MG/ML VIAL (J3301) As Ordered ONE
--- NOTE | 2017-10-27 01:00 | ECWPNPC ---
PATIENT NAME: DONNA MALDONADO : 1990 GENDER: FEMALE VISIT DATE: 10/11/2017 DISCHARGE DATE: 10/11/17 1133 VISIT LOCKED DATE TIME: PHYSICIAN: MERON RAMOS RESOURCE: MERON RAMOS REASON FOR APPOINTMENT 1. POST TPI HISTORY OF PRESENT ILLNESS HISTORY OF PRESENT ILLNESS: HERE FOR POST PROCEDURE F/U AND MANAGEMENT OF CHRONIC SHOULDERS AND THORACIC SPINE PAIN.HAD TPI BILATERAL SHOULDER,RIGHT THORACIC AND LOW BACK REGION ON 09-21-17.REPORTS >50% RELIEF THAT CONTINUES TODAY.RATING PAIN VAS 5/10.PAIN IS RIGHT NECK AND RIGH SCAPULAR AREA.CURRENTLY HAS HAD GABAPENTIN INCREASED BY NEUROLOGY TO 600MG TID STARTED LAST WEEK.FEELS IT IS SOMEWHAT HELPFUL. PAIN THE PATIENT DESCRIBES THE PAIN... THE PATIENT DESCRIBES THE PAIN... FALL RISK SCREENING: SCREENING :NO FALLS IN THE PAST YEAR CURRENT MEDICATIONS TAKING PROPRANOLOL HCL 20 MG TABLET 1 TABLET ORALLY TWICE A DAY TAKING [id number] 50-300-40 MG CAPSULE 2 ORALLY DAILY NEEDED TAKING ZOFRAN 8 MG TABLET 1 TABLET ORALLY TID NEEDED TAKING REQUIP 0.5 MG TABLET ORALLY ONE AT SUPPER/ONE AT BEDTIME TAKING MICROGESTIN / 1-20 MG-MCG TABLET 1 TABLET ORALLY DAILY FOR THREE WEEKS, 1 WEEK OFF TAKING ACETAMINOPHEN 500 MG CAPSULE 2 CAPSULES NEEDED ORALLY EVERY 6 HRS TAKING HYDROXYCHLOROQUINE SULFATE 200 MG TABLET 1 TABLET WITH FOOD OR MILK ORALLY ONCE A DAY TAKING IBUPROFEN 200 MG TABLET 1 TABLET NEEDED ORALLY EVERY 6 HRS TAKING GABAPENTIN 600 MG TABLET 1 CAPSULE ORALLY THREE TIMES A DAY TAKING MELOXICAM 15 MG TABLET 1 TABLET ORALLY ONCE A DAY TAKING ROBAXIN 500 MG TABLET 1-2 TABS ORALLY DAILY TAKING TRAMADOL HCL 50 MG TABLET 1 ORALLY Q4-6H MDD4 NOT-TAKING PREDNISOLONE 5 MG TABLET ORALLY DAILY, NOTES: WEEK AGO MEDICATION LIST REVIEWED AND RECONCILED WITH THE PATIENT PAST MEDICAL HISTORY MIGRAINES FIBROMYALGIA RIGHT KNEE CARTILAGE DEGENERATION SCOLIOSIS HERNIATED DISCS PSVT CONNECTIVE TISSUE DISEASE ALLERGIES FLEXERIL: MOOD CHANGES: SIDE EFFECTS LYRICA: INCREASES MIGRAINES: SIDE EFFECTS SURGICAL HISTORY TONSILECTOMY 1998 2014 SOCIAL HISTORY GENERAL: TOBACCO USE ARE YOU A:NONSMOKER CAFFEINE CAFFEINE USE?YES HOW OFTEN AND HOW MUCH? 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 [id number] NONE LANGUAGE LANGUAGES SPOKEN:[place]OV[place] LEARNING BARRIERS / SPECIAL NEEDS BARRIERS TO LEARNING?NO HEARING IMPAIRED?NO VISION IMPAIRED?NO COGNITIVELY IMPAIRED?NO READINESS TO LEARN?YES LEARNING PREFERENCES?NO LEARNING CAPABILITIES PRESENT?YES EMOTIONAL BARRIERS?NO SPECIAL DEVICES?NO ANIMAL PATHOLOGIST NEEDED?NO PAIN CLINIC PFS, CLERGY, PUBLIC HEALTH REFERRALS PFS REFERRAL NEEDED?NO CLERGY REFERRAL NEEDED?NO PUBLIC HEALTH REFERRAL NEEDED?NO WAS THE PROVIDER NOTIFIED OF ANY PERTINENT INFO?YES HAS THE PATIENT BEEN EDUCATED REGARDING HIS/HER PLAN OF CARE?YES PLEASE DOCUMENT ANY ADDTIONAL DETAILS. TRIGGER POINT INJECTIONS UPPER BACK AND LOWER BACK HAS THE PATIENT BEEN EDUCATED REGARDING PAIN, THE RISK FOR PAIN, THE IMPORTANCE OF EFFECTIVE PAIN MANAGEMENT, AND THE PAIN ASSESSMENT PROCESS?YES REVIEWED BY: CHARIS. PATIENT: ____. ADVANCE DIRECTIVES HEALTH CARE PROXY?NO WOULD YOU LIKE MORE INFORMATION?NO DO YOU HAVE A DNR?NO WOULD YOU LIKE MORE INFORMATION?NO LIVING WILL?NO WOULD YOU LIKE MORE INFORMATION?NO POWER OF LUGGER?NO WOULD YOU LIKE MORE INFORMATION?NO HOSPITALIZATION/MAJOR DIAGNOSTIC PROCEDURE SEE ABOVE REVIEW OF SYSTEMS REVIEWED BY: PROVIDER: MERON MOREIRA . CONSTITUTIONAL: ANY CHANGE IN YOUR MEDICAL CONDITION? NO . CHILLS NO . FEVER NO . INFECTION: DO YOU HAVE NEW INFECTIONS? NO . DO YOU HAVE HISTORY OF MRSA? NO . MUSCULOSKELETAL: ANY NEW PATTERNS OF PAIN OR NUMBNESS? YES, PT REPORTS TPI 09/21/17 WITH IMPROVEMENT . GASTROENTEROLOGY: ANY NEW CHANGE IN BOWEL CONTROL? NO . GENITOURINARY: ANY NEW CHANGE IN BLADDER CONTROL? NO . IS THERE A CHANCE YOU COULD BE ? NO . HEMATOLOGY/LYMPH: DO YOU TAKE ANY BLOOD THINNERS? (FOR EXAMPLE- COUMADIN, PLAVIX, AGGRENOX, PLATEL, PRADAXA, OR XARELTO) NO . WHEN WAS YOUR LAST DOSE? DATE: TIME: . NEUROLOGY: HAVE YOU FALLEN IN THE PAST 6 MONTHS? NO . ANY NEW EXTREMITY NUMBNESS OR WEAKNESS? NO . CARDIOLOGY: DO YOU HAVE A PACEMAKER OR DEFIBRILLATOR? NO . RESPIRATORY: HAVE YOU BEEN SICK IN THE PAST WEEK? NO . FEVER NO . FLU LIKE SYMPTOMS? NO . COUGH NO . INTEGUMENTARY: DO YOU HAVE ANY RASHES OR OPEN SORES? NO . ALLERGIC/IMMUNO: ARE YOU ALLERGIC TO SHELLFISH OR IV DYE? NO . ANY NEW ALLERGIES? NO . PSYCHIATRIC: DO YOU HAVE THOUGHTS OF HURTING YOURSELF OR SOMEONE ELSE? NO . ARE YOU ABUSED, NEGLECTED, OR IN AN UNSAFE ENVIRONMENT? NO . ENDOCRINOLOGY: ARE YOU DIABETIC? NO . OTHER: DO YOU NEED ANY PRESCRIPTIONS? NO . IF YES, PLEASE LIST: ____ . ANY NEW PROBLEMS WITH YOUR MEDICATIONS? YES, DISCUSS DISCONTINUING TRAMADOL . WHEN DID YOU LAST EAT? ____ . WHEN DID YOU LAST DRINK? ____ . WHAT DID YOU LAST DRINK? ____ . NAME OF PERSON DRIVING YOU HOME? ____ . DO YOU HAVE ANY OTHER QUESTIONS OR CONCERNS NO . VITAL SIGNS WT 97.0 LBS, HT 61 IN, BMI 18.33 INDEX, BP 97/65 MM HG, HR 83 /MIN, RR 16 /MIN, TEMP 97.5 F, OXYGEN SAT % 99%, NA INITIALS TL 1054, REVIEWED BY: EM. EXAMINATION GENERAL EXAMINATION: LUNGS:LUNG SOUNDS ARE CLEAR. HEART:HEART RATE REGULAR. MUSCULOSKELETAL:*TRIGGER POINTS ELICITED WITH PALPATION OVER CERVICAL SPINOUS PROCESSES AND ACROSS THE TRAPEZIUS MUSCLES BILATERALLYL>R .RESTRICTION OF ROM IS NOTED. . ASSESSMENTS CONNECTIVE TISSUE DISEASE - M35.9 (PRIMARY) MYOFASCIAL PAIN - M79.1 FIBROMYALGIA - M79.7 TREATMENT CONNECTIVE TISSUE DISEASE STOP TRAMADOL HCL TABLET, 50 MG, 1, ORALLY, Q4-6H MDD4 PROCEDURE CODES FA211 ESTABILISHED PATIENT [facility] CHARGE DISPOSITION & COMMUNICATION FOLLOW UP 2 MONTHS ELECTRONICALLY SIGNED BY HARISH COOK ON 10/25/2017 AT 08:04 PM EST DISCLAIMER : THIS IS A VISIT SUMMARY EXTRACTED FROM THE [employer] CHART. IT IS NOT A COPY OF THE [employer] PROGRESS NOTE. SONALID
== END ==
LOC: M PAIN 10:45
PROVIDERS: ATTEND Nurse Practitioner Family
DX: G89.29 Other chronic pain (principal); M35.9 Systemic involvement of connective tissue, unspecified; M79.7 Fibromyalgia; G43.909 Migraine, unspecified, not intractable, without status migrainosus; M41.9 Scoliosis, unspecified; Z79.891 Long term (current) use of opiate analgesic; Z79.899 Other long term (current) drug therapy; Z88.8 Allergy status to other drugs, medicaments and biological substances

== ENCOUNTER → 2017-12-13 | Outpatient (CLI) | payer OTHER | LOC: M PAIN 10:45 | DX: Z53.29 Procedure and treatment not carried out because of patient's decision for other reasons (principal) ==

== ENCOUNTER → 2017-12-14 | Outpatient (CLI) | payer OTHER | LOC: M PAIN 10:15 | DX: G89.29 Other chronic pain (principal); M35.9 Systemic involvement of connective tissue, unspecified; M79.7 Fibromyalgia; G43.909 Migraine, unspecified, not intractable, without status migrainosus; M41.9 Scoliosis, unspecified; Z88.8 Allergy status to other drugs, medicaments and biological substances; Z79.899 Other long term (current) drug therapy | CPT/HCPCS: G0463 ==

== ENCOUNTER → 2018-02-08 | Outpatient (CLI) | payer OTHER | LOC: M PAIN 13:00 | DX: M35.9 Systemic involvement of connective tissue, unspecified (principal); M79.7 Fibromyalgia; Z79.899 Other long term (current) drug therapy; Z88.8 Allergy status to other drugs, medicaments and biological substances | CPT/HCPCS: G0463 ==

== ENCOUNTER → 2018-03-08 | Outpatient (CLI) | payer OTHER | LOC: M PAIN 11:00 | DX: M35.9 Systemic involvement of connective tissue, unspecified (principal); M79.7 Fibromyalgia; M54.5 Low back pain; G89.29 Other chronic pain; G43.909 Migraine, unspecified, not intractable, without status migrainosus; M16.11 Unilateral primary osteoarthritis, right hip; M41.9 Scoliosis, unspecified; Z79.899 Other long term (current) drug therapy; Z88.8 Allergy status to other drugs, medicaments and biological substances | CPT/HCPCS: G0463 ==

== ENCOUNTER → 2018-06-09 | Outpatient (CLI) | payer OTHER | LOC: M PAIN 10:45 | DX: M35.9 Systemic involvement of connective tissue, unspecified (principal); M79.7 Fibromyalgia; M41.9 Scoliosis, unspecified; Z79.899 Other long term (current) drug therapy; Z88.8 Allergy status to other drugs, medicaments and biological substances | CPT/HCPCS: G0463 ==

== ENCOUNTER → 2018-06-24 | Outpatient (CLI) | payer OTHER | LOC: M RAD 10:59 | DX: R06.02 Shortness of breath (principal) | CPT/HCPCS: 71046 ==

== ENCOUNTER → 2020-05-17 | Outpatient (CLI) | payer OTHER ==
[~2020-05-17] MED LIST changes: +CYAN500T8 PO; -GABA-282 PO; +GABA-843 PO; -MECL-68 PO; +MECL1TAB31 PO; +REQU0.5T PO; -REQU1TAB15 PO; -VITA500T3 PO; -ZOFR8TAB PO; +ZOFR8TAB24 PO
--- NOTE | 2020-05-22 15:13 | REP ---
Right foot series: Four views. Repeat dictation. History: Injury. Preliminary report is provided at the time of exam by Dr. Barcenas. Findings: Four views of the right foot demonstrate a os naviculare. Overall mineralization pattern is normal. No fracture or subluxation is seen. Impression: No fracture noted. Electronically Signed by Mehul Winters MD 05/22/2020 03:04 P
== END ==
LOC: M LRY 14:30
PROVIDERS: ATTEND Physician Assistant
DX: S99.921A Unspecified injury of right foot, initial encounter (principal); X58.XXXA Exposure to other specified factors, initial encounter; Y92.89 Other specified places as the place of occurrence of the external cause; Y93.9 Activity, unspecified; Y99.9 Unspecified external cause status

== ENCOUNTER 2021-08-29 13:44 | Outpatient (RCR) | payer OTHER ==
[~2021-08-29 13:44] MED LIST changes: +CYAN500T14 PO; -CYAN500T8 PO; -CYMB60CA3 PO; +CYMB60CA4 PO; +GABA-282 PO; -GABA-843 PO
== END 2021-09-28 ==
LOC: M PT 13:44
PROVIDERS: ATTEND Otolaryngology
DX: M26.603 Bilateral temporomandibular joint disorder, unspecified (principal)

== ENCOUNTER → 2025-10-02 | Outpatient (CLI) | payer OTHER ==
[~2025-10-02] MED LIST changes: +GABA-1172 PO; -GABA-282 PO; +MECL-209 PO; -MECL1TAB31 PO
== END ==
LOC: M PLAIMG 14:34
PROVIDERS: ATTEND Physician Assistant
DX: R06.02 Shortness of breath (principal); M35.9 Systemic involvement of connective tissue, unspecified

== ENCOUNTER → 2025-10-30 | Outpatient (CLI) | payer OTHER ==
[~2025-10-30] MED LIST changes: +METHACHOLINE KIT (6 VIAL.NEB PREMIX) INH ONE
== END ==
LOC: M CARPUL 12:34
PROVIDERS: ATTEND Physician Assistant
DX: R06.02 Shortness of breath (principal)